=== PATIENT | female | born 1960 | race Caucasian/White ===

== ENCOUNTER 2020-10-21 18:31 | Inpatient (IN) ==
[2020-10-21 21:14] LABS: Basophils # (auto) 0.02 K/uL (0-0.2); Basophils % (auto) 0.1 %; Eosinophils # (auto) 0.02 K/uL (0-0.5); Eosinophils % (auto) 0.1 %; Hematocrit (blood only) 37.3 % (37-47); Hemoglobin 11.9 g/dL (12.0-16.0); Immature Granulocytes # (auto) 0.02 K/uL (0.00-0.02); Immature Granulocytes % (auto) 0.1 %; Lymphocytes # (auto) 2.23 K/uL (1.2-3.4); Lymphocytes % (auto) 16.7 %; Mean Corpuscular Hemoglobin 29.8 pg (25-34); Mean Corpuscular Hgb Conc 31.9 g/dL (32-36); Mean Corpuscular Volume 93.3 fL (80-100); Monocytes # (auto) 0.83 K/uL (0.11-0.59); Monocytes % (auto) 6.2 %; Neutrophils # (auto) 10.27 K/uL (1.4-6.5); Neutrophils % (auto) 76.8 %; Platelet Count 439 K/uL (130-400); RDW Coefficient of Variation 15.4 % (11.5-14.5); RDW Standard Deviation 52.2 fL (36.4-46.3); White Blood Count 13.39 K/uL (4.8-10.8)
[2020-10-21 21:27] LABS: INR 1.1 (0.9-1.1); Prothrombin Time 10.7 Seconds (9.0-12.0)
[2020-10-21 21:50] LABS: Alanine Aminotransferase 116 U/L (12-78); Albumin Level 3.3 gm/dl (3.4-5.0); Aspartate Aminotransferase 69 U/L (15-37); BUN Creatinine Ratio 13.3 (10-20); Blood Urea Nitrogen 13 mg/dl (7-18); Carbon Dioxide 25 mmol/L (21-32); Chloride 104 mmol/L (98-107); Creatinine Clr Calc Pharmacy 73.2 ml/min; Est GFR (African American) 73.7 ml/min; Est GFR (Non-African American) 63.6 ml/min; Glucose 106 mg/dl (70-99); Magnesium 1.8 mg/dl (1.8-2.4); Potassium 3.7 mmol/L (3.5-5.1); Sodium 138 mmol/L (136-145)
[2020-10-21 21:54] LABS: Albumin Globulin Ratio 0.8 (0.9-2); Alkaline Phosphatase 474 U/L (45-117); Bilirubin,Total 2.1 mg/dl (0.2-1); Globulin 4.2 gm/dl (2.5-4.0); Total Protein 7.5 gm/dl (6.4-8.2); Troponin I < 0.015 ng/ml (0-0.045)
[2020-10-21] MEDS ORDERED: AMPICILLIN/SULBACTAM SOD 3,000 MG in 0.9 % SODIUM CHLORIDE 100 ML IV STA (22:02)
--- NOTE | 2020-10-21 22:12 | Emergency Department Note ---
Impression & Plan Left leg pain, Fever, Wound infection after surgery, Leukocytosis ED Provider Note NAME: LUPE IBRAHIM AGE: 60 SEX: F : 1960 ARRIVES VIA: Walk-In INFORMANT: [Patient][family] ED PROVIDER(S): [Bill Bolivar MD] CHIEF COMPLAINT: Fever HISTORY OF PRESENT ILLNESS: The patient is a 60-year-old female who presents to the ER with a temperature of 101.5. She took some Tylenol and this brought the temperature down. Since noon today, for several hours, she has had chills and fevers and then finally spiked a temperature just before coming to the ED. The patient had 5 bypasses performed at [facility] in [place]. This was about 3 weeks ago. The patient states that she was told to report to the ED because of the fever. There has been no shortness of breath or cough. No stuffy nose or sore throat. No vomiting or diarrhea or urinary complaints. She has not had any tick bites. She is not vaccinated against COVID-19 but has had no sick contacts. She states that she does have some healing surgical wounds to her left leg where they took some veins for her surgery. Her left leg is somewhat swollen but this has been the case since the surgery. REVIEW OF SYSTEMS: See HPI for pertinent positives and negatives. A total of ten systems were reviewed and were otherwise negative. PMHx/PSHx: See Below SOCIAL HISTORY: See Below. PHYSICAL EXAM: GENERAL: Patient is in no acute distress. HEENT: No acute trauma, normocephalic atraumatic, mucous membranes moist, no nasal congestion, no scleral icterus. NECK: No stridor, no adenopathy, no meningismus, trachea is midline. LUNGS: Clear to auscultation bilaterally, no wheeze, no rhonchi, breath sounds equal. HEART: Without murmurs gallops or rubs, regular rate and rhythm. Chest: The midline surgical incision is healing well, no surrounding erythema or drainage. ABDOMEN: Soft, nontender, bowel sounds positive, no hernias, no peritonitis. EXTREMITIES: No cyanosis. There is some left lower extremity edema. There is a healing lesion/scab to the left medial tib-fib area with some subtle surrounding erythema. No tenderness, no real warmth. Patient has a 6 or 7 cm area of fullness to the left distal medial thigh. This is tender. There is some surrounding warmth and erythema. No drainage. There is a scab in the center of the erythema. NEUROLOGIC: Oriented x 3, no acute motor or sensory deficits, no focal weakness. SKIN: No jaundice, no diaphoresis. DIFFERENTIAL DIAGNOSIS: Sepsis, UTI, pneumonia, metabolic abnormality, electrolyte abnormalities, abscess, COVID-19, cardiac sources, cellulitis, UTI, bacteremia, intracerebral event, toxicologic etiology, neurologic event, as well as other pathologies. EMERGENCY DEPARTMENT COURSE/PROCEDURES: ECG: Indication was possible sepsis. The ECG shows a normal sinus rhythm with a rate of 96. There are inverted T waves in the inferior, lateral leads. No ST elevation, no PVCs. The QTc is 442. No old EKGs available for comparison. Continuous Cardiac Monitoring: An order was placed for continuous cardiac monitoring. The monitor shows a rate of 81 with normal sinus rhythm. MEDICAL DECISION MAKING: There is a moderate leukocytosis which would be consistent with infection. No concerning anemia. Platelet count mildly elevated. No coagulopathy. No significant electrolyte abnormality or kidney failure. Lactic acid level is not elevated making severe sepsis less likely. There were a few liver enzyme elevations noted. ECG shows a sinus rhythm, no acute ischemia. Cardiac enzyme testing x1 is not consistent with acute cardiac injury. Urinalysis shows some contamination, no infection. Covid testing returned negative. Lyme disease testing returned negative. Left leg ultrasound did not show any evidence for DVT. Left leg nonvascular ultrasound did show a large presumed hematoma. The patient was given IV Unasyn and IV daptomycin. She is currently resting comfortably. I did speak with the patient's cardiothoracic surgeon in [place]. He felt the patient could be cared for at our hospital. The hematoma needs drained. The hematoma is likely infected. There was no reason for transfer to their facility. I spoke to orthopedics who did not feel they were the best specialists for the drainage procedure. I then spoke with general surgery who did agree to see the patient for potential surgical intervention. I spoke with the patient and case packer. The on-call hospitalist was consulted. Patient will be seen by surgery in the a.m. Past Med/Surg History Medical History CAD (coronary atherosclerotic disease) Surgical History S/P CABG x 5 Social History Smoking Status: Never smoker Feels Safe at Home: Yes Results & Data (ED) Vital Signs Vital Signs - 24 hr 10/21/20 18:38 10/21/20 21:19 10/21/20 23:04 Temperature 37.2 C Temperature Source Oral Pulse Rate 104 H Pulse Rate [Apical] 81 79 Pulse Rhythm [Apical] Regular Pulse Strength [Apical] Normal Respiratory Rate 18 20 16 Respiratory Effort / Characteristics Non-Labored Non-Labored Spontaneous Non-Labored Spontaneous Respiratory Depth Normal Normal Normal Blood Pressure 120/75 Blood Pressure [Right Arm] 126/91 153/104 H Blood Pressure Mean 90 Blood Pressure Mean [Right Arm] 102 120 Blood Pressure Position [Right Arm] Sitting Pulse Oximetry 96 97 96 Oxygen Delivery Method Room Air Room Air Room Air Sepsis Recent Fever Within 48 Hours No Sepsis New/Unexplained Change in Mental Status No Sepsis Action Taken by Nursing No Action Required Laboratory Data Attestation: I reviewed the patient's lab results. Result diagrams: 10/21/20 20:50 10/21/20 20:50 Lab Results 10/21/20 10/21/20 10/21/20 Range/Units 20:50 20:50 20:50 WBC 13.39 H (4.8-10.8) K/uL RBC 4.00 L (4.2-5.4) M/uL Hgb 11.9 L (12.0-16.0) g/dL Hct 37.3 (37-47) % MCV 93.3 (80-100) fL MCH 29.8 (25-34) pg MCHC 31.9 L (32-36) g/dL RDW Std Deviation 52.2 H (36.4-46.3) fL RDW Coeff of Kathryn 15.4 H (11.5-14.5) % Plt Count 439 H (130-400) K/uL MPV 9.0 (7.4-10.4) fL Immature Gran % (Auto) 0.1 % Neut % (Auto) 76.8 % Lymph % (Auto) 16.7 % [place] % (Auto) 6.2 % Eos % (Auto) 0.1 % Baso % (Auto) 0.1 % Neut # (Auto) 10.27 H (1.4-6.5) K/uL Lymph # (Auto) 2.23 (1.2-3.4) K/uL [place] # (Auto) 0.83 H (0.11-0.59) K/uL Eos # (Auto) 0.02 (0-0.5) K/uL Baso # (Auto) 0.02 (0-0.2) K/uL Immature Gran # (Auto) 0.02 (0.00-0.02) K/uL PT 10.7 (9.0-12.0) Seconds INR 1.1 (0.9-1.1) APTT 25.0 (21.0-31.0) Seconds PTT Ratio 1.0 Sodium 138 (136-145) mmol/L Potassium 3.7 (3.5-5.1) mmol/L Chloride 104 (98-107) mmol/L Carbon Dioxide 25 (21-32) mmol/L Anion Gap 9.0 (3-11) BUN 13 (7-18) mg/dl Creatinine 0.98 (0.6-1.2) mg/dl Est Cr Clr Drug Dosing 73.2 ml/min Est GFR ( Amer) 73.7 ml/min Est GFR (Non-Af Amer) 63.6 ml/min BUN/Creatinine Ratio 13.3 (10-20) Glucose 106 H (70-99) mg/dl Lactate (0.4-2.0) mmol/L Calcium 9.0 (8.5-10.1) mg/dl Magnesium 1.8 (1.8-2.4) mg/dl Total Bilirubin 2.1 H (0.2-1) mg/dl AST 69 H (15-37) U/L ALT 116 H (12-78) U/L Alkaline Phosphatase 474 H (45-117) U/L Troponin I < 0.015 (0-0.045) ng/ml Total Protein 7.5 (6.4-8.2) gm/dl Albumin 3.3 L (3.4-5.0) gm/dl Globulin 4.2 H (2.5-4.0) gm/dl Albumin/Globulin Ratio 0.8 L (0.9-2) Urine Color Urine Appearance (Clear) Urine pH (4.5-7.5) Ur Specific [place] (1.000-1.030) Urine Protein (Negative) Urine Glucose (UA) (Negative) Urine Ketones (Negative) Urine Blood (Negative) Urine Nitrite (Negative) Urine Bilirubin (Negative) Urine Urobilinogen (Negative) Ur Leukocyte Esterase (Negative) Urine WBC (Auto) (0-5) /hpf Urine RBC (Auto) (0-4) /hpf U Hyaline Cast (Auto) (0-5) /lpf U Epithel Cells (Auto) (0-5) /lpf Urine Bacteria (Auto) (Negative) Lyme Disease IgG Ab (Negative) Lyme Disease IgM Ab (Negative) COVID-19 Eval Order SARS-CoV-2 (PCR) (Negative) 10/21/20 10/21/20 10/21/20 Range/Units 22:08 22:08 22:29 WBC (4.8-10.8) K/uL RBC (4.2-5.4) M/uL Hgb (12.0-16.0) g/dL Hct (37-47) % MCV (80-100) fL MCH (25-34) pg MCHC (32-36) g/dL RDW Std Deviation (36.4-46.3) fL RDW Coeff of Kathryn (11.5-14.5) % Plt Count (130-400) K/uL MPV (7.4-10.4) fL Immature Gran % (Auto) % Neut % (Auto) % Lymph % (Auto) % [place] % (Auto) % Eos % (Auto) % Baso % (Auto) % Neut # (Auto) (1.4-6.5) K/uL Lymph # (Auto) (1.2-3.4) K/uL [place] # (Auto) (0.11-0.59) K/uL Eos # (Auto) (0-0.5) K/uL Baso # (Auto) (0-0.2) K/uL Immature Gran # (Auto) (0.00-0.02) K/uL PT (9.0-12.0) Seconds INR (0.9-1.1) APTT (21.0-31.0) Seconds PTT Ratio Sodium (136-145) mmol/L Potassium (3.5-5.1) mmol/L Chloride (98-107) mmol/L Carbon Dioxide (21-32) mmol/L Anion Gap (3-11) BUN (7-18) mg/dl Creatinine (0.6-1.2) mg/dl Est Cr Clr Drug Dosing ml/min Est GFR ( Amer) ml/min Est GFR (Non-Af Amer) ml/min BUN/Creatinine Ratio (10-20) Glucose (70-99) mg/dl Lactate 1.1 (0.4-2.0) mmol/L Calcium (8.5-10.1) mg/dl Magnesium (1.8-2.4) mg/dl Total Bilirubin (0.2-1) mg/dl AST (15-37) U/L ALT (12-78) U/L Alkaline Phosphatase (45-117) U/L Troponin I (0-0.045) ng/ml Total Protein (6.4-8.2) gm/dl Albumin (3.4-5.0) gm/dl Globulin (2.5-4.0) gm/dl Albumin/Globulin Ratio (0.9-2) Urine Color Urine Appearance (Clear) Urine pH (4.5-7.5) Ur Specific [place] (1.000-1.030) Urine Protein (Negative) Urine Glucose (UA) (Negative) Urine Ketones (Negative) Urine Blood (Negative) Urine Nitrite (Negative) Urine Bilirubin (Negative) Urine Urobilinogen (Negative) Ur Leukocyte Esterase (Negative) Urine WBC (Auto) (0-5) /hpf Urine RBC (Auto) (0-4) /hpf U Hyaline Cast (Auto) (0-5) /lpf U Epithel Cells (Auto) (0-5) /lpf Urine Bacteria (Auto) (Negative) Lyme Disease IgG Ab (Negative) Lyme Disease IgM Ab (Negative) COVID-19 Eval Order Covid19 at [facility] SARS-CoV-2 (PCR) NEGATIVE (Negative) 10/21/20 10/21/20 Range/Units 22:29 23:34 WBC (4.8-10.8) K/uL RBC (4.2-5.4) M/uL Hgb (12.0-16.0) g/dL Hct (37-47) % MCV (80-100) fL MCH (25-34) pg MCHC (32-36) g/dL RDW Std Deviation (36.4-46.3) fL RDW Coeff of Kathryn (11.5-14.5) % Plt Count (130-400) K/uL MPV (7.4-10.4) fL Immature Gran % (Auto) % Neut % (Auto) % Lymph % (Auto) % [place] % (Auto) % Eos % (Auto) % Baso % (Auto) % Neut # (Auto) (1.4-6.5) K/uL Lymph # (Auto) (1.2-3.4) K/uL [place] # (Auto) (0.11-0.59) K/uL Eos # (Auto) (0-0.5) K/uL Baso # (Auto) (0-0.2) K/uL Immature Gran # (Auto) (0.00-0.02) K/uL PT (9.0-12.0) Seconds INR (0.9-1.1) APTT (21.0-31.0) Seconds PTT Ratio Sodium (136-145) mmol/L Potassium (3.5-5.1) mmol/L Chloride (98-107) mmol/L Carbon Dioxide (21-32) mmol/L Anion Gap (3-11) BUN (7-18) mg/dl Creatinine (0.6-1.2) mg/dl Est Cr Clr Drug Dosing ml/min Est GFR ( Amer) ml/min Est GFR (Non-Af Amer) ml/min BUN/Creatinine Ratio (10-20) Glucose (70-99) mg/dl Lactate (0.4-2.0) mmol/L Calcium (8.5-10.1) mg/dl Magnesium (1.8-2.4) mg/dl Total Bilirubin (0.2-1) mg/dl AST (15-37) U/L ALT (12-78) U/L Alkaline Phosphatase (45-117) U/L Troponin I (0-0.045) ng/ml Total Protein (6.4-8.2) gm/dl Albumin (3.4-5.0) gm/dl Globulin (2.5-4.0) gm/dl Albumin/Globulin Ratio (0.9-2) Urine Color Dark Yellow Urine Appearance Cloudy A (Clear) Urine pH 5.5 (4.5-7.5) Ur Specific [place] 1.037 H (1.000-1.030) Urine Protein 1+ H (Negative) Urine Glucose (UA) Negative (Negative) Urine Ketones Trace H (Negative) Urine Blood Negative (Negative) Urine Nitrite Negative (Negative) Urine Bilirubin 1+ H (Negative) Urine Urobilinogen Negative (Negative) Ur Leukocyte Esterase Negative (Negative) Urine WBC (Auto) 5-10 H (0-5) /hpf Urine RBC (Auto) 0-4 (0-4) /hpf U Hyaline Cast (Auto) 10-30 H (0-5) /lpf U Epithel Cells (Auto) >30 H (0-5) /lpf Urine Bacteria (Auto) 1+ H (Negative) Lyme Disease IgG Ab Negative (Negative) Lyme Disease IgM Ab Negative (Negative) COVID-19 Eval Order SARS-CoV-2 (PCR) (Negative) Administered Medications Discontinued Medications Ampicillin Sodium/Sulbactam Sodium 3,000 mg/ Sodium Chloride 108 mls @ 200 mls/hr IV NOW STA; Protocol Stop: 10/21/20 22:34 Last Infusion: 10/21/20 23:03 Dose: 0 mls/hr Documented by: [id number] Admin: 10/21/20 22:15 Dose: 200 mls/hr Documented by: [id number] Imaging Data Radiologist's Impression: Left lower extremity vascular and nonvascular ultrasound: There is no DVT. The patient has a nonspecific complex fluid collection extending from the distal thigh down the calf measuring 33 cm in craniocaudal dimension and 3.1 x 6.5 cm in greatest axial dimension. This could represent a resolving hematoma or seroma or phlegmon/early abscess. Discharge Plan Visit Data Chief Complaint: Fever Stated Complaint: FEVER ED Provider: Bill Bolivar Discharge Problem: Left leg pain, Fever, Wound infection after surgery, Leukocytosis Patient Disposition: Admitted As Inpatient Condition: Fair Forms Stand Alone Forms: [facility] Referrals Referrals: PCP,NO [Physician] -
[2020-10-21 23:29] LABS: Lyme Ab IgG w/WB Rflx Negative (Negative); Lyme Ab IgM w/WB Rflx Negative (Negative)
[2020-10-21 23:44] LABS: Appearance Urine Cloudy (Clear); Bacteria Urine Automated 1+ (Negative); Blood Urine Negative (Negative); Color Urine Dark Yellow; Epithelial Cell Urine Auto >30 /lpf (0-5); Glucose Urine UA Negative (Negative); Ketones Urine Trace (Negative); Leukocyte Esterase Urine Negative (Negative); Nitrite Urine Negative (Negative); Protein Urine 1+ (Negative); Specific Gravity Urine 1.037 (1.000-1.030); Urobilinogen Urine Negative (Negative); pH Urine 5.5 (4.5-7.5)
[2020-10-21 23:52] LABS: Bilirubin Urine 1+ (Negative)
[2020-10-22 00:02] LABS: RBC Urine Automated 0-4 /hpf (0-4)
[2020-10-22] MEDS ORDERED: DAPTOmycin 300 MG in SYRINGE 0 ML IV ONE (00:23)
--- NOTE | 2020-10-22 01:12 | History & Physical Report ---
Date of Service October 22, 2020 Assessment & Plan (1) Left leg pain: Plan: 60-year-old female with history of coronary artery disease status post CABG x5 vessel performed on 09/29/2020 presenting with fever from home as well as redness and swelling of the left leg at site of vein harvest for CABG. Ultrasound revealed large fluid collection, possible abscess. Most likely source of patient's fever, swelling and pain. Case discussed between ER physician and general surgery. Admit to medical We will initiate broad-spectrum antibiotics with vancomycin and Zosyn Follow cultures sent in ER N.p.o. General surgery consultation appreciated for possible drainage (2) CAD (coronary atherosclerotic disease): Plan: Patient status post CABG x5 vessel performed on 09/29/2020 in [place], [place]. Surgery well-tolerated. She has been doing well postoperatively. Specifically denies chest pain, palpitations, syncope, dyspnea. Troponin = negative. EKG with diffuse T wave inversions, possibly secondary to post cardiac catheterization changes. Continue aspirin 81 mg, atorvastatin 80 mg, metoprolol 50 mg twice daily (3) Hypertension: Plan: Blood pressure mildly elevated 157/92 Pain control Continue amlodipine 5 mg p.o. daily Continue metoprolol 50 mg p.o. twice daily Continue to monitor (4) Elevated alkaline phosphatase level: Plan: Patient with abnormal liver studies and mixed pattern, alkaline phosphatase = 474 most likely secondary to recent sternotomy. Also with elevated bilirubin of 2.1, AST = 69, ALT = 116. Abdominal exam benign. Patient denies pain, nausea, vomiting. Right upper quadrant ultrasound obtained and is unremarkable Repeat LFTs in a.m. History of Present Illness Chief Complaint: Fever, left thigh pain Primary Care Provider: Elvis Stephens MD Rosibel Myles is a 60-year-old female with history of hypertension, coronary artery disease, status post CABG x5 vessel performed 09/29/2020 at [facility] in [place], [place] (Dr. Rivers was surgeon). Patient recently moved in with her daughter who lives locally. She presents today with fever as well as swelling/pain of left thigh at site of vein harvest. T-max of one 1.5 prior to arrival. Patient took Tylenol No additional complaints. Specifically denies chest pain, palpitations, cough, shortness of breath. Denies abdominal pain, nausea, vomiting, diarrhea, constipation. She has been taking her medications as instructed without difficulty. ER course: Unasyn, daptomycin Allergies Allergy/AdvReac Type Severity Reaction Status Date / Time No Known Allergies Allergy Unverified 10/22/20 01:07 Home Medications Medication Instructions Recorded Confirmed Type amlodipine 5 mg tablet 5 mg PO DAILY 10/22/20 10/22/20 History aspirin 81 mg PO DAILY 10/22/20 10/22/20 History atorvastatin 80 mg tablet 80 mg PO DAILY 10/22/20 10/22/20 History furosemide 40 mg tablet 40 mg PO DAILY 10/22/20 10/22/20 History metoprolol tartrate 50 mg tablet 50 mg PO BID 10/22/20 10/22/20 History potassium chloride 20 mEq 20 meq PO DAILY 10/22/20 10/22/20 History tablet,extended release(part/cryst) (Annette lAcantara) Past Med/Surg History Medical History (Updated 10/22/20 @ 03:04 by Tracie Lei DO) CAD (coronary atherosclerotic disease) Hypertension Surgical History (Updated 10/22/20 @ 02:58 by Tracie Lei DO) [facility] (Updated 10/22/20 @ 02:58 by Tracie Lei DO) Other Heart disease Hypertension Social History (Updated 10/22/20 @ 02:59 by Tracie Lei DO) Smoking Status: Never smoker Hx Alcohol Use: No Hx Substance Use: No Feels Safe at Home: Yes Review of Systems Review of Systems: All systems reviewed & are unremarkable except as noted in HPI & below Physical Exam Physical Exam: General: patient resting comfortably, NAD, non-toxic in appearance, AA&O x 4 Skin: warm, dry, intact, no rashes or lesions HEENT: NC/AT, PERRL, EOMI, anicteric sclera, conjunctiva without injection, external ear normal to inspection and nontender, nares patent, moist mucus membranes, dentition intact, no oropharyngeal lesions, neck supple, trachea midline, no LAD, no thyromegaly, no JVD Heart: +S1/S2, regular, no m/r/g, well-healing sternotomy incision with no bleeding/erythema/dehiscence Lungs: equal air entry bilaterally, no rales/rhonchi/wheezes Abd: +BS, soft, NT/ND, no masses/organomegaly/ascites, no right upper quadrant pain, negative Gardner sign Ext: warm, 2+ pulses in UE/LE bilaterally, no clubbing/cyanosis, tenderness to palpation left medial thigh to posterior popliteal fossa with warmth and redness Neuro: nonfocal, patient AA&O x 4, speech intact, no facial droop, moving all extremities on command with equal strength 5/5 Results & Data Results & Data ([facility]) Vital Signs (Past 12 Hours) Vital Signs Temp Pulse Pulse Resp BP BP Pulse Ox 10/21/20 23:04 79 16 153/104 H 96 10/21/20 21:19 81 20 126/91 97 10/21/20 18:38 37.2 C 104 H 18 120/75 96 Laboratory Results Laboratory Results WBC 13.39 K/uL (4.8-10.8) H 10/21/20 20:50 RBC 4.00 M/uL (4.2-5.4) L 10/21/20 20:50 Hgb 11.9 g/dL (12.0-16.0) L 10/21/20 20:50 Hct 37.3 % (37-47) 10/21/20 20:50 MCV 93.3 fL (80-100) 10/21/20 20:50 MCH 29.8 pg (25-34) 10/21/20 20:50 MCHC 31.9 g/dL (32-36) L 10/21/20 20:50 RDW Std Deviation 52.2 fL (36.4-46.3) H 10/21/20 20:50 RDW Coeff of Kathryn 15.4 % (11.5-14.5) H 10/21/20 20:50 Plt Count 439 K/uL (130-400) H 10/21/20 20:50 MPV 9.0 fL (7.4-10.4) 10/21/20 20:50 Immature Gran % (Auto) 0.1 % 10/21/20 20:50 Neut % (Auto) 76.8 % 10/21/20 20:50 Lymph % (Auto) 16.7 % 10/21/20 20:50 [place] % (Auto) 6.2 % 10/21/20 20:50 Eos % (Auto) 0.1 % 10/21/20 20:50 Baso % (Auto) 0.1 % 10/21/20 20:50 Neut # (Auto) 10.27 K/uL (1.4-6.5) H 10/21/20 20:50 Lymph # (Auto) 2.23 K/uL (1.2-3.4) 10/21/20 20:50 [place] # (Auto) 0.83 K/uL (0.11-0.59) H 10/21/20 20:50 Eos # (Auto) 0.02 K/uL (0-0.5) 10/21/20 20:50 Baso # (Auto) 0.02 K/uL (0-0.2) 10/21/20 20:50 Immature Gran # (Auto) 0.02 K/uL (0.00-0.02) 10/21/20 20:50 PT 10.7 Seconds (9.0-12.0) 10/21/20 20:50 INR 1.1 (0.9-1.1) 10/21/20 20:50 APTT 25.0 Seconds (21.0-31.0) 10/21/20 20:50 PTT Ratio 1.0 10/21/20 20:50 Sodium 138 mmol/L (136-145) 10/21/20 20:50 Potassium 3.7 mmol/L (3.5-5.1) 10/21/20 20:50 Chloride 104 mmol/L (98-107) 10/21/20 20:50 Carbon Dioxide 25 mmol/L (21-32) 10/21/20 20:50 Anion Gap 9.0 (3-11) 10/21/20 20:50 BUN 13 mg/dl (7-18) 10/21/20 20:50 Creatinine 0.98 mg/dl (0.6-1.2) 10/21/20 20:50 Est Cr Clr Drug Dosing 73.2 ml/min 10/21/20 20:50 Est GFR ( Amer) 73.7 ml/min 10/21/20 20:50 Est GFR (Non-Af Amer) 63.6 ml/min 10/21/20 20:50 BUN/Creatinine Ratio 13.3 (10-20) 10/21/20 20:50 Glucose 106 mg/dl (70-99) H 10/21/20 20:50 Lactate 1.1 mmol/L (0.4-2.0) 10/21/20 22:29 Calcium 9.0 mg/dl (8.5-10.1) 10/21/20 20:50 Magnesium 1.8 mg/dl (1.8-2.4) 10/21/20 20:50 Total Bilirubin 2.1 mg/dl (0.2-1) H 10/21/20 20:50 AST 69 U/L (15-37) H 10/21/20 20:50 ALT 116 U/L (12-78) H 10/21/20 20:50 Alkaline Phosphatase 474 U/L (45-117) H 10/21/20 20:50 Troponin I < 0.015 ng/ml (0-0.045) 10/21/20 20:50 Total Protein 7.5 gm/dl (6.4-8.2) 10/21/20 20:50 Albumin 3.3 gm/dl (3.4-5.0) L 10/21/20 20:50 Globulin 4.2 gm/dl (2.5-4.0) H 10/21/20 20:50 Albumin/Globulin Ratio 0.8 (0.9-2) L 10/21/20 20:50 Urine Color Dark Yellow 10/21/20 23:34 Urine Appearance Cloudy (Clear) A 10/21/20 23:34 Urine pH 5.5 (4.5-7.5) 10/21/20 23:34 Ur Specific [place] 1.037 (1.000-1.030) H 10/21/20 23:34 Urine Protein 1+ (Negative) H 10/21/20 23:34 Urine Glucose (UA) Negative (Negative) 10/21/20 23:34 Urine Ketones Trace (Negative) H 10/21/20 23:34 Urine Blood Negative (Negative) 10/21/20 23:34 Urine Nitrite Negative (Negative) 10/21/20 23:34 Urine Bilirubin 1+ (Negative) H 10/21/20 23:34 Urine Urobilinogen Negative (Negative) 10/21/20 23:34 Ur Leukocyte Esterase Negative (Negative) 10/21/20 23:34 Urine WBC (Auto) 5-10 /hpf (0-5) H 10/21/20 23:34 Urine RBC (Auto) 0-4 /hpf (0-4) 10/21/20 23:34 U Hyaline Cast (Auto) 10-30 /lpf (0-5) H 10/21/20 23:34 U Epithel Cells (Auto) >30 /lpf (0-5) H 10/21/20 23:34 Urine Bacteria (Auto) 1+ (Negative) H 10/21/20 23:34 Lyme Disease IgG Ab Negative (Negative) 10/21/20 22:29 Lyme Disease IgM Ab Negative (Negative) 10/21/20 22:29 COVID-19 Eval Order Covid19 at [facility] 10/21/20 22:08 SARS-CoV-2 (PCR) NEGATIVE (Negative) 10/21/20 22:08 Diagnostic Findings Liver ultrasound: Per stat readno cholelithiasis. Sludge is visualized within the lumen of the gallbladder. No gallbladder wall thickening. Negative sonographic Gardner sign. No intrahepatic or extrahepatic biliary dilatation. Hepatomegaly with mildly heterogenous echotexture of the hepatic parenchyma. No focal liver lesion is visualized. No right hydronephrosis. Ultrasound extremity: Per stat readnonspecific complex fluid collection extending from the distal thigh and the calf measuring approximately 33 cm in craniocaudal dimension and 3.1 x 6.5 cm in greatest axial dimension. This could represent a resolving hematoma or seroma with phlegmon/early abscess not excluded. Ultrasound venous left lower extremity: Per stat readno evidence of DVT ECG Additional Comments: EKG with normal sinus rhythm at 96 bpm, PA = 114, QRS = 82, QTC = 442, T wave inversion present diffusely. No previous EKGs available for comparison Code Status & VTE Plan VTE Prophylaxis Plan VTE Prophylaxis will be ordered: Yes PG Care Time/CCT Total # of Minutes Spent Total Time Spent with Patient: Total time spent is greater than 50% in coordination of care (as documented) at patient's floor/unit and/or counseling patient: Coding Level of Care Code 49550 Initial Inpt Care Lvl 3 Diagnoses Hypertension I10 Left leg pain M79.605 CAD (coronary atherosclerotic disease) I25.10 Elevated alkaline phosphatase level R74.8
[2020-10-22] MEDS ORDERED: PIPERACILL/TAZOBAC CONSULT ACTIVE PRN (03:34)
[2020-10-22] MEDS ORDERED: DOCUSATE SODIUM 100 MG CAP PO PRN (03:34)
[2020-10-22] MEDS ORDERED: ONDANSETRON INJ 2 MG/ML 2 ML VIAL IV PRN ×2 (03:34→11:56)
[2020-10-22] MEDS ORDERED: VANCOMYCIN CONSULT ACTIVE PRN (03:34)
[2020-10-22] MEDS ORDERED: ACETAMINOPHEN 325 MG TAB PO PRN (03:34)
[2020-10-22] MEDS ORDERED: PIPERACILLIN/TAZOBACTAM 4.5 GM in DEXTROSE 5% 100 ML IV ONE (04:00)
[2020-10-22] MEDS ORDERED: VANCOMYCIN HCL 2,250 MG in SODIUM CHLORIDE 0.9% 500 ML IV ONE (04:00)
--- NOTE | 2020-10-22 07:13 | Ultrasound Report ---
US liver CLINICAL HISTORY: elevated alkaline phosphatase and bilirubin COMPARISON STUDY: No previous studies for comparison. FINDINGS: This exam is mildly compromised by suboptimal penetration. Liver is mildly echogenic and he terogeneous. The liver is not overtly cirrhotic. No hepatic lesions are identified. There is no bilia ry ductal dilatation. The common bile duct measures 4 mm in caliber. No gallstones are noted. There i s sludge within the gallbladder. There is no sonographic Gardner sign. There is no gallbladder wall th ickening. Pancreatic body is unremarkable. Tail is obscured by overlying bowel gas. There is no right hydronephrosis. IMPRESSION: 1. No gallstones or biliary ductal dilatation. Small amount of sludge within the gallbladder. No evid ence for acute cholecystitis. 2. Possible hepatic steatosis. Liver not overtly cirrhotic. ACT 112: Negative or not required by law. Electronically signed by: Adriano Palma M.D. 10/22/2020 7:11 AM
--- NOTE | 2020-10-22 08:04 | Ultrasound Report ---
LEFT LOWER EXTREMITY VENOUS DOPPLER CLINICAL HISTORY: surgery, swelling COMPARISON STUDY: No previous studies for comparison. TECHNIQUE: Sonography of the deep venous system of the left lower extremity was performed. Compressi on and augmentation were evaluated. FINDINGS: The left common femoral, superficial femoral and popliteal veins were compressible. Augmen tation was normal. Flow was shown within the deep calf vessels. IMPRESSION: No evidence of deep venous thrombus within the left lower extremity. ACT 112: Negative or not required by law. Electronically signed by: Adriano Palma M.D. 10/22/2020 8:03 AM
--- NOTE | 2020-10-22 08:14 | XRay Report ---
XR chest 1V portable CLINICAL HISTORY: Sepsis COMPARISON STUDY: No previous studies for comparison. FINDINGS: Lung volumes are normal. There is no pneumothorax. There is a small left pleural effusion. There is mild left basilar opacity. There is no evidence for pulmonary edema. Cardiomegaly is noted. There are median sternotomy wires and mediastinal surgical clips. IMPRESSION: 1. Small left pleural effusion with left basilar opacity. Radiographic follow-up to ensure resolution is recommended. 2. Cardiomegaly without evidence for pulmonary edema. ACT 112: Negative or not required by law. Electronically signed by: Adriano Palma M.D. 10/22/2020 8:13 AM
--- NOTE | 2020-10-22 08:34 | Ultrasound Report ---
US extremity non-vascular ltd CLINICAL HISTORY: left inner thigh redness, swelling, poss abscess COMPARISON STUDY: None. FINDINGS: Real-time sonographic imaging of the left distal thigh/calf was performed with representati ve images submitted. There is a linear slightly complex fluid collection within the deep subcutaneous soft tissues which measures 33 x 7 x 3 cm. This favors a hematoma or degloving injury. An abscess is considered less likely but could also have a similar appearance. IMPRESSION: A 33 x 7 x 3 cm complex fluid collection within the deep subcutaneous soft tissues of th e left lower extremity. This favors a hematoma or degloving injury. An abscess is considered less lik danis but not entirely excluded. ACT 112: Negative or not required by law. Electronically signed by: Art Swartz M.D. 10/22/2020 8:33 AM
[2020-10-22] MEDS ORDERED: NON-FORMULARY MEDICATION (Aspirin 81 MG) PO SCH (09:00)
--- NOTE | 2020-10-22 09:10 | Surgery Consultation ---
Date of Consultation October 22, 2020 Assessment & Plan (1) Wound infection after surgery: 60 year-old female who is s/p 5 vessel CABG at [facility] on 09/29/2020 who presented to ED with chills and fever with increasing swelling of left medial thigh incision with redness. US showing complex fluid collection of left lower extremity extending 33 cm craniocaudal. Examination with induration, fluctuance, and erythema surrounding left medial thigh vein harvesting incision site. leukocytosis of 13K. Plan: Plan for Incision and drainage in OR under light sedation and local anesthesia by Dr. Montaño. Dr. Montaño discussed procedure and risks, informed consent obtained. Keep NPO continue IV antibiotics DR. Montaño has seen and examined pt, agrees with above History of Present Illness Reason for Consultation: Left thigh abscess Requesting Physician: Bhumika Rodriguez MD Attending Physician: Bhumika Rodriguez MD History of Present Illness Rosibel is a 60 year-old female with history of CAD, HTN, and recent 5 vessel CABG at [facility] in [place], [place] at beginning of this month who presented to emergency department complaining of chills and fever of 101.4 that started yesterday around lunch time. States she has swelling and redness near her left thigh incision site that just started yesterday. Takes Lasix for left lower extremity swelling since 1 week afer her CABG.No drainage from incision site since she has been home. Had some bloody drainage from incision during her hospital stay. Takes 81 mg of aspirin. Allergies Allergy/AdvReac Type Severity Reaction Status Date / Time No Known Allergies Allergy Unverified 10/22/20 01:07 Home Medications Medication Instructions Recorded Confirmed Type amlodipine 5 mg tablet 5 mg PO DAILY 10/22/20 10/22/20 History aspirin 81 mg PO DAILY 10/22/20 10/22/20 History atorvastatin 80 mg tablet 80 mg PO DAILY 10/22/20 10/22/20 History furosemide 40 mg tablet 40 mg PO DAILY 10/22/20 10/22/20 History metoprolol tartrate 50 mg tablet 50 mg PO BID 10/22/20 10/22/20 History potassium chloride 20 mEq 20 meq PO DAILY 10/22/20 10/22/20 History tablet,extended release(part/cryst) (Annette Alcantara) Patient History Medical History (Updated 10/22/20 @ 03:04 by Tracie Lei DO) CAD (coronary atherosclerotic disease) Hypertension Surgical History (Updated 10/22/20 @ 02:58 by Tracie Lei DO) [facility] (Updated 10/22/20 @ 02:58 by Tracie Lei DO) Other Heart disease Hypertension Social History (Updated 10/22/20 @ 02:59 by Tracie Lei DO) Smoking Status: Former smoker Hx Alcohol Use: No Hx Substance Use: No Preferred Language: Bruneian Communication Ability: Effective Mangle Tender Required: No Beliefs That Will Affect Care: None Current Living Situation: Family Other Information That Helps Us Care for You: No Feels Safe at Home: Yes Safety Concerns: Feels Safe At This Time Assistive Devices: None Physical Exam Constitutional: WD/WN, vitals as above + morbidly obese; no acute distress and not ill appearing Respiratory: normal respiratory effort; no respiratory distress, no labored breathing and no retractions Musculoskeletal: Left medial thigh with induration and fluctuance surrounding the medial incision site with surrounding erythema. Tenderness to palpation. There is mild edema of the lower extremity. NO rashes. Right medial calf incision clean/dry/intact. Skin: no rashes, warm and dry Psychiatric: A+Ox3, euthymic affect Results & Data ([facility]) Vital Signs (Past 12 Hours) Vital Signs Temp Pulse Pulse Resp BP Pulse Ox 10/22/20 03:00 37.7 C H 77 80 22 152/88 H 95 10/22/20 01:00 88 16 157/92 H 96 10/21/20 23:04 79 16 153/104 H 96 10/21/20 21:19 81 20 126/91 97 Laboratory Results 10/22/20 10/21/20 10/21/20 Range/Units 05:58 23:34 22:29 WBC (4.8-10.8) K/uL RBC (4.2-5.4) M/uL Hgb (12.0-16.0) g/dL Hct (37-47) % MCV (80-100) fL MCH (25-34) pg MCHC (32-36) g/dL RDW Std Deviation (36.4-46.3) fL RDW Coeff of Kathryn (11.5-14.5) % Plt Count (130-400) K/uL MPV (7.4-10.4) fL Immature Gran % (Auto) % Neut % (Auto) % Lymph % (Auto) % [place] % (Auto) % Eos % (Auto) % Baso % (Auto) % Neut # (Auto) (1.4-6.5) K/uL Lymph # (Auto) (1.2-3.4) K/uL [place] # (Auto) (0.11-0.59) K/uL Eos # (Auto) (0-0.5) K/uL Baso # (Auto) (0-0.2) K/uL Immature Gran # (Auto) (0.00-0.02) K/uL PT (9.0-12.0) Seconds INR (0.9-1.1) APTT (21.0-31.0) Seconds PTT Ratio Sodium (136-145) mmol/L Potassium (3.5-5.1) mmol/L Chloride (98-107) mmol/L Carbon Dioxide (21-32) mmol/L Anion Gap (3-11) BUN (7-18) mg/dl Creatinine (0.6-1.2) mg/dl Est Cr Clr Drug Dosing ml/min Est GFR ( Amer) ml/min Est GFR (Non-Af Amer) ml/min BUN/Creatinine Ratio (10-20) Glucose (70-99) mg/dl Lactate (0.4-2.0) mmol/L Calcium (8.5-10.1) mg/dl Magnesium (1.8-2.4) mg/dl Total Bilirubin (0.2-1) mg/dl AST (15-37) U/L ALT (12-78) U/L Alkaline Phosphatase (45-117) U/L Total Creatine Kinase 93 (26-192) U/L Troponin I (0-0.045) ng/ml Total Protein (6.4-8.2) gm/dl Albumin (3.4-5.0) gm/dl Globulin (2.5-4.0) gm/dl Albumin/Globulin Ratio (0.9-2) Urine Color Dark Yellow Urine Appearance Cloudy A (Clear) Urine pH 5.5 (4.5-7.5) Ur Specific [place] 1.037 H (1.000-1.030) Urine Protein 1+ H (Negative) Urine Glucose (UA) Negative (Negative) Urine Ketones Trace H (Negative) Urine Blood Negative (Negative) Urine Nitrite Negative (Negative) Urine Bilirubin 1+ H (Negative) Urine Urobilinogen Negative (Negative) Ur Leukocyte Esterase Negative (Negative) Urine WBC (Auto) 5-10 H (0-5) /hpf Urine RBC (Auto) 0-4 (0-4) /hpf U Hyaline Cast (Auto) 10-30 H (0-5) /lpf U Epithel Cells (Auto) >30 H (0-5) /lpf Urine Bacteria (Auto) 1+ H (Negative) Lyme Disease IgG Ab Negative (Negative) Lyme Disease IgM Ab Negative (Negative) COVID-19 Eval Order SARS-CoV-2 (PCR) (Negative) 10/21/20 10/21/20 10/21/20 Range/Units 22:29 22:08 22:08 WBC (4.8-10.8) K/uL RBC (4.2-5.4) M/uL Hgb (12.0-16.0) g/dL Hct (37-47) % MCV (80-100) fL MCH (25-34) pg MCHC (32-36) g/dL RDW Std Deviation (36.4-46.3) fL RDW Coeff of Kathryn (11.5-14.5) % Plt Count (130-400) K/uL MPV (7.4-10.4) fL Immature Gran % (Auto) % Neut % (Auto) % Lymph % (Auto) % [place] % (Auto) % Eos % (Auto) % Baso % (Auto) % Neut # (Auto) (1.4-6.5) K/uL Lymph # (Auto) (1.2-3.4) K/uL [place] # (Auto) (0.11-0.59) K/uL Eos # (Auto) (0-0.5) K/uL Baso # (Auto) (0-0.2) K/uL Immature Gran # (Auto) (0.00-0.02) K/uL PT (9.0-12.0) Seconds INR (0.9-1.1) APTT (21.0-31.0) Seconds PTT Ratio Sodium (136-145) mmol/L Potassium (3.5-5.1) mmol/L Chloride (98-107) mmol/L Carbon Dioxide (21-32) mmol/L Anion Gap (3-11) BUN (7-18) mg/dl Creatinine (0.6-1.2) mg/dl Est Cr Clr Drug Dosing ml/min Est GFR ( Amer) ml/min Est GFR (Non-Af Amer) ml/min BUN/Creatinine Ratio (10-20) Glucose (70-99) mg/dl Lactate 1.1 (0.4-2.0) mmol/L Calcium (8.5-10.1) mg/dl Magnesium (1.8-2.4) mg/dl Total Bilirubin (0.2-1) mg/dl AST (15-37) U/L ALT (12-78) U/L Alkaline Phosphatase (45-117) U/L Total Creatine Kinase (26-192) U/L Troponin I (0-0.045) ng/ml Total Protein (6.4-8.2) gm/dl Albumin (3.4-5.0) gm/dl Globulin (2.5-4.0) gm/dl Albumin/Globulin Ratio (0.9-2) Urine Color Urine Appearance (Clear) Urine pH (4.5-7.5) Ur Specific [place] (1.000-1.030) Urine Protein (Negative) Urine Glucose (UA) (Negative) Urine Ketones (Negative) Urine Blood (Negative) Urine Nitrite (Negative) Urine Bilirubin (Negative) Urine Urobilinogen (Negative) Ur Leukocyte Esterase (Negative) Urine WBC (Auto) (0-5) /hpf Urine RBC (Auto) (0-4) /hpf U Hyaline Cast (Auto) (0-5) /lpf U Epithel Cells (Auto) (0-5) /lpf Urine Bacteria (Auto) (Negative) Lyme Disease IgG Ab (Negative) Lyme Disease IgM Ab (Negative) COVID-19 Eval Order Covid19 at [facility] SARS-CoV-2 (PCR) NEGATIVE (Negative) 10/21/20 10/21/20 10/21/20 Range/Units 20:50 20:50 20:50 WBC 13.39 H (4.8-10.8) K/uL RBC 4.00 L (4.2-5.4) M/uL Hgb 11.9 L (12.0-16.0) g/dL Hct 37.3 (37-47) % MCV 93.3 (80-100) fL MCH 29.8 (25-34) pg MCHC 31.9 L (32-36) g/dL RDW Std Deviation 52.2 H (36.4-46.3) fL RDW Coeff of Kathryn 15.4 H (11.5-14.5) % Plt Count 439 H (130-400) K/uL MPV 9.0 (7.4-10.4) fL Immature Gran % (Auto) 0.1 % Neut % (Auto) 76.8 % Lymph % (Auto) 16.7 % Tripp % (Auto) 6.2 % Eos % (Auto) 0.1 % Baso % (Auto) 0.1 % Neut # (Auto) 10.27 H (1.4-6.5) K/uL Lymph # (Auto) 2.23 (1.2-3.4) K/uL [place] # (Auto) 0.83 H (0.11-0.59) K/uL Eos # (Auto) 0.02 (0-0.5) K/uL Baso # (Auto) 0.02 (0-0.2) K/uL Immature Gran # (Auto) 0.02 (0.00-0.02) K/uL PT 10.7 (9.0-12.0) Seconds INR 1.1 (0.9-1.1) APTT 25.0 (21.0-31.0) Seconds PTT Ratio 1.0 Sodium 138 (136-145) mmol/L Potassium 3.7 (3.5-5.1) mmol/L Chloride 104 (98-107) mmol/L Carbon Dioxide 25 (21-32) mmol/L Anion Gap 9.0 (3-11) BUN 13 (7-18) mg/dl Creatinine 0.98 (0.6-1.2) mg/dl Est Cr Clr Drug Dosing 73.2 ml/min Est GFR ( Amer) 73.7 ml/min Est GFR (Non-Af Amer) 63.6 ml/min BUN/Creatinine Ratio 13.3 (10-20) Glucose 106 H (70-99) mg/dl Lactate (0.4-2.0) mmol/L Calcium 9.0 (8.5-10.1) mg/dl Magnesium 1.8 (1.8-2.4) mg/dl Total Bilirubin 2.1 H (0.2-1) mg/dl AST 69 H (15-37) U/L ALT 116 H (12-78) U/L Alkaline Phosphatase 474 H (45-117) U/L Total Creatine Kinase (26-192) U/L Troponin I < 0.015 (0-0.045) ng/ml Total Protein 7.5 (6.4-8.2) gm/dl Albumin 3.3 L (3.4-5.0) gm/dl Globulin 4.2 H (2.5-4.0) gm/dl Albumin/Globulin Ratio 0.8 L (0.9-2) Urine Color Urine Appearance (Clear) Urine pH (4.5-7.5) Ur Specific [place] (1.000-1.030) Urine Protein (Negative) Urine Glucose (UA) (Negative) Urine Ketones (Negative) Urine Blood (Negative) Urine Nitrite (Negative) Urine Bilirubin (Negative) Urine Urobilinogen (Negative) Ur Leukocyte Esterase (Negative) Urine WBC (Auto) (0-5) /hpf Urine RBC (Auto) (0-4) /hpf U Hyaline Cast (Auto) (0-5) /lpf U Epithel Cells (Auto) (0-5) /lpf Urine Bacteria (Auto) (Negative) Lyme Disease IgG Ab (Negative) Lyme Disease IgM Ab (Negative) COVID-19 Eval Order SARS-CoV-2 (PCR) (Negative) Diagnostic Findings US extremity non-vascular ltd CLINICAL HISTORY: left inner thigh redness, swelling, poss abscess COMPARISON STUDY: None. FINDINGS: Real-time sonographic imaging of the left distal thigh/calf was performed with client service representative images submitted. There is a linear slightly complex fluid collection within the deep subcutaneous soft tissues which measures 33 x 7 x 3 cm. This favors a hematoma or degloving injury. An abscess is considered less likely but could also have a similar appearance. IMPRESSION: A 33 x 7 x 3 cm complex fluid collection within the deep subcutaneous soft tissues of the left lower extremity. This favors a hematoma or degloving injury. An abscess is considered less likely but not entirely excluded.
[2020-10-22] MEDS: ATORVASTATIN 40 MG TAB PO SCH (09:54)
[2020-10-22] MEDS: FUROSEMIDE 40 MG TAB PO SCH (09:55)
[2020-10-22] MEDS: POTASSIUM CHLORIDE CRTAB 20 MEQ TABCR PO SCH (09:55)
[2020-10-22] MEDS: ASPIRIN 81 MG ECTAB PO SCH (09:55)
[2020-10-22] MEDS: METOPROLOL TARTRATE 50 MG TAB PO SCH ×2 (09:55→22:05)
[2020-10-22] MEDS: amLODIPine BESYLATE 5 MG TAB PO SCH (09:55)
[2020-10-22] MEDS ORDERED: PIPERACILLIN/TAZOBACTAM 4.5 GM in DEXTROSE 5% 100 ML IV SCH (10:00)
--- NOTE | 2020-10-22 10:28 | Medical Student Progress Note ---
Date of Service October 22, 2020 Assessment & Plan (1) Wound infection after surgery: Plan: 60 y/o female with history of CAD s/p CABG x5 vessel preformed - presents w/ LLE surgical site infection -Pt w/ infection of RLE at site where vein graft was harvested for CABG -Pt w/ mild leukocytosis but w/o fever or tachycardia -Vanc/zosyn discontinued, started on linezolid -Cultures pending -General performed I&D on 10/22 (2) Elevated alkaline phosphatase level: Plan: -Pt w/ elevated Alkaline phosphatase -Liver u/s unremarkable -Suspected elevated alkaline phosphatase due to recent sternotomy -No tx indicated (3) Hypertension: Plan: -HTN, CAD -Continue home meds Admission and Anticipated Discharge Date Admission Date: October 22, 2020 Subjective 60 y/o female s/p CABG x5 09/29/2020 presented to the ED for a fever and left leg pain. U/S showed complex fluid collection of left lower extremity extending 33 cm craniocaudal. Pt says that the swollen area on her left leg is painful to the touch. Otherwise, she states that she feels fine. Review of Systems Review of Systems: All systems reviewed & are unremarkable except as noted in Subjective Physical Exam Constitutional: Well developed female in no aparant distress sitting comfortably upright in bed Respiratory: normal respiratory effort, lungs clear to auscultation Cardiovascular: Regular rate and rhythm, no murmurs, rubs, or gallops Skin: Well healing anterior sternum surgical incision. No hyperthermia no erythema Left medial distal thigh, well demarcated 3-5cm swollen, erythematous, firm, tender hyperthermic area surrounding 1-2 cm incision with no signs of purulent discharge Results & Data ([facility]) Vital Signs (Past 12 Hours) Vital Signs Temp Pulse Pulse Resp BP Pulse Ox 10/22/20 03:00 37.7 C H 77 80 22 152/88 H 95 10/22/20 01:00 88 16 157/92 H 96 10/21/20 23:04 79 16 153/104 H 96 Laboratory Results Laboratory Results - last 24 hr 10/21/20 10/21/20 10/21/20 20:50 20:50 20:50 WBC 13.39 H RBC 4.00 L Hgb 11.9 L Hct 37.3 MCV 93.3 MCH 29.8 MCHC 31.9 L RDW Std Deviation 52.2 H RDW Coeff of Kathryn 15.4 H Plt Count 439 H MPV 9.0 Immature Gran % (Auto) 0.1 Neut % (Auto) 76.8 Lymph % (Auto) 16.7 [place] % (Auto) 6.2 Eos % (Auto) 0.1 Baso % (Auto) 0.1 Neut # (Auto) 10.27 H Lymph # (Auto) 2.23 [place] # (Auto) 0.83 H Eos # (Auto) 0.02 Baso # (Auto) 0.02 Immature Gran # (Auto) 0.02 PT 10.7 INR 1.1 APTT 25.0 PTT Ratio 1.0 Sodium 138 Potassium 3.7 Chloride 104 Carbon Dioxide 25 Anion Gap 9.0 BUN 13 Creatinine 0.98 Est Cr Clr Drug Dosing 73.2 Est GFR ( Amer) 73.7 Est GFR (Non-Af Amer) 63.6 BUN/Creatinine Ratio 13.3 Glucose 106 H Lactate Calcium 9.0 Magnesium 1.8 Total Bilirubin 2.1 H AST 69 H ALT 116 H Alkaline Phosphatase 474 H Total Creatine Kinase Troponin I < 0.015 Total Protein 7.5 Albumin 3.3 L Globulin 4.2 H Albumin/Globulin Ratio 0.8 L Urine Color Urine Appearance Urine pH Ur Specific [place] Urine Protein Urine Glucose (UA) Urine Ketones Urine Blood Urine Nitrite Urine Bilirubin Urine Urobilinogen Ur Leukocyte Esterase Urine WBC (Auto) Urine RBC (Auto) U Hyaline Cast (Auto) U Epithel Cells (Auto) Urine Bacteria (Auto) Lyme Disease IgG Ab Lyme Disease IgM Ab COVID-19 Eval Order SARS-CoV-2 (PCR) 10/21/20 10/21/20 10/21/20 22:08 22:08 22:29 WBC RBC Hgb Hct MCV MCH MCHC RDW Std Deviation RDW Coeff of Kathryn Plt Count MPV Immature Gran % (Auto) Neut % (Auto) Lymph % (Auto) [place] % (Auto) Eos % (Auto) Baso % (Auto) Neut # (Auto) Lymph # (Auto) [place] # (Auto) Eos # (Auto) Baso # (Auto) Immature Gran # (Auto) PT INR APTT PTT Ratio Sodium Potassium Chloride Carbon Dioxide Anion Gap BUN Creatinine Est Cr Clr Drug Dosing Est GFR ( Amer) Est GFR (Non-Af Amer) BUN/Creatinine Ratio Glucose Lactate 1.1 Calcium Magnesium Total Bilirubin AST ALT Alkaline Phosphatase Total Creatine Kinase Troponin I Total Protein Albumin Globulin Albumin/Globulin Ratio Urine Color Urine Appearance Urine pH Ur Specific [place] Urine Protein Urine Glucose (UA) Urine Ketones Urine Blood Urine Nitrite Urine Bilirubin Urine Urobilinogen Ur Leukocyte Esterase Urine WBC (Auto) Urine RBC (Auto) U Hyaline Cast (Auto) U Epithel Cells (Auto) Urine Bacteria (Auto) Lyme Disease IgG Ab Lyme Disease IgM Ab COVID-19 Eval Order Covid19 at [facility] SARS-CoV-2 (PCR) NEGATIVE 10/21/20 10/21/20 10/22/20 22:29 23:34 05:58 WBC RBC Hgb Hct MCV MCH MCHC RDW Std Deviation RDW Coeff of Kathryn Plt Count MPV Immature Gran % (Auto) Neut % (Auto) Lymph % (Auto) [place] % (Auto) Eos % (Auto) Baso % (Auto) Neut # (Auto) Lymph # (Auto) [place] # (Auto) Eos # (Auto) Baso # (Auto) Immature Gran # (Auto) PT INR APTT PTT Ratio Sodium Potassium Chloride Carbon Dioxide Anion Gap BUN Creatinine Est Cr Clr Drug Dosing Est GFR ( Amer) Est GFR (Non-Af Amer) BUN/Creatinine Ratio Glucose Lactate Calcium Magnesium Total Bilirubin AST ALT Alkaline Phosphatase Total Creatine Kinase 93 Troponin I Total Protein Albumin Globulin Albumin/Globulin Ratio Urine Color Dark Yellow Urine Appearance Cloudy A Urine pH 5.5 Ur Specific [place] 1.037 H Urine Protein 1+ H Urine Glucose (UA) Negative Urine Ketones Trace H Urine Blood Negative Urine Nitrite Negative Urine Bilirubin 1+ H Urine Urobilinogen Negative Ur Leukocyte Esterase Negative Urine WBC (Auto) 5-10 H Urine RBC (Auto) 0-4 U Hyaline Cast (Auto) 10-30 H U Epithel Cells (Auto) >30 H Urine Bacteria (Auto) 1+ H Lyme Disease IgG Ab Negative Lyme Disease IgM Ab Negative COVID-19 Eval Order SARS-CoV-2 (PCR)
[2020-10-22] MEDS ORDERED: LINEZOLID CONSULT ACTIVE PRN (10:30)
[2020-10-22 10:44] LABS: Creatinine Clr Calc Pharmacy 83.4 ml/min; Est GFR (African American) 86.3 ml/min; Est GFR (Non-African American) 74.5 ml/min
[2020-10-22] MEDS ORDERED: fentaNYL citrate 100 MCG/2 ML VIAL ONE (11:13)
[2020-10-22] MEDS ORDERED: PROPOFOL IV EMULSION 10 MG/ML 20 ML VIAL IV ONE ×2 (11:13→12:23)
[2020-10-22] MEDS ORDERED: LACTATED RINGER'S 1,000 ML IV SCH (11:30)
--- NOTE | 2020-10-22 11:30 | Hospitalist Progress Note ---
Date of Service October 22, 2020 Assessment & Plan (1) Wound infection after surgery: Plan: 60-year-old female with history of coronary artery disease status post CABG x5 vessel performed on 09/29/2020 presenting with fever from home as well as redness and swelling of the left leg at site of vein harvest for CABG. Ultrasound revealed large fluid collection, possible abscess. Most likely source of patient's fever, swelling and pain. Surgical site infection Patient with infection of RLE at site where vein graft was harvested for CABG patient underwent on 09/29 in [place] Vanc/zosyn discontinued; started zyvox Cultures pending I&D performed by surgery on 10/22, procedure tolerated well CAD s/p CABG x5 Denies symptoms of ACS; troponin negative EKG with diffuse T-wave inversions, suspect post-catheterization changes Continue ASA, atorvastatin, metoprolol Hypertension Mildly elevated at this time (~150/80) Continue amlodipine, metoprolol Elevated alkaline phosphatase level Patient with abnormal liver studies and mixed pattern, alkaline phosphatase = 474 Suspected to be secondary to recent sternotomy RUQ ultrasound unremarkable Follow daily CMP FEN: , LR@80mL/hr - d/c after one bag. Code status: DNR/DNI DVT ppx: SCDs Consults: general surgery Dispo: med/surg Admission and Anticipated Discharge Date Admission Date: October 22, 2020 Supervising Physician Co-Signing Physician Notes Resident Physician Supervision Note: I independently interviewed and examined the patient and verified the aranda history and physical, reviewed labs and image studies and agree with resident Dr. Griffith findings and care plan. Subjective Patient seen and evaluated at bedside this morning. Feels well and has no complaints. LLE infection is tender to palpation but painless at rest. No other symptoms. Patient denies CP, SOB, abdominal pain, nausea, vomiting, lightheadedness, dizziness, and diarrhea. Review of Systems Review of Systems: See HPI Physical Exam Physical Exam: Constitutional: well-appearing, no acute distress CV: regular rhythm, no murmur appreciated, extremities well-perfused, no LE edema Resp: CTABL, no wheezes/rales/rhonchi appreciated, no increased work of breathing Skin: left thigh with roughly 10-15cm x 10-15cm firm area of swelling, hyperthermia, and underlying induration with central scar, no blood/pus/exudate appreciated, mildly tender to palpation Neuro: AOx4, no focal neurological deficits appreciated Results & Data Results & Data ([facility]) Vital Signs (Past 12 Hours) Vital Signs Temp Pulse Pulse Resp BP Pulse Ox 10/22/20 03:00 37.7 C H 77 80 22 152/88 H 95 10/22/20 01:00 88 16 157/92 H 96 Resident Activity Tracking Resident Involvement: Resident Care Provided Care Provided: Adult Hospital Medicine
[2020-10-22] MEDS ORDERED: BUPIVACAINE 0.5 % 5 MG/1 ML MPF 30ML VIAL ONE (11:42)
[2020-10-22] MEDS ORDERED: LIDOCAINE 1% LOCAL 20 ML VIAL ONE (11:42)
--- NOTE | 2020-10-22 11:51 | History & Physical Bridge Note ---
Date of Service October 22, 2020 History & Physical Bridge Note I have examined the patient, reviewed the History & Physical and in the interval since the performance of the History & Physical I have noted the following changes of clinical significance: no changes noted
--- NOTE | 2020-10-22 11:55 | Anesthesiology Consultation ---
Date of Service October 22, 2020 Assessment & Plan (1) Encounter for pre-operative examination: Chart Review Chart Review: Acceptable Risk for Surgery and Patient NOT seen in Pre Admission Testing Consults Requested none History Surgery Operation Date: 10/22/20 11:30 Proposed Procedures p Incision and Drainage Left Thigh Abscess - Ana María Montaño MD Height/Weight Height: 5 ft 3 in Weight: 106.7 kg Allergies Allergy/AdvReac Type Severity Reaction Status Date / Time No Known Allergies Allergy Unverified 10/22/20 01:07 Medications Home Medications Medication Instructions Recorded Confirmed Last Taken amlodipine 5 mg tablet 5 mg PO DAILY 10/22/20 10/22/20 10/21/20 aspirin 81 mg PO DAILY 10/22/20 10/22/20 10/21/20 atorvastatin 80 mg tablet 80 mg PO DAILY 10/22/20 10/22/20 10/21/20 furosemide 40 mg tablet 40 mg PO DAILY 10/22/20 10/22/20 10/21/20 metoprolol tartrate 50 mg tablet 50 mg PO BID 10/22/20 10/22/20 10/21/20 potassium chloride 20 mEq 20 meq PO DAILY 10/22/20 10/22/20 10/21/20 tablet,extended release(part/cryst) (Klor-Con M) Active Medications Generic Name Dose Route Start Last Admin Trade Name John Paul PRN Reason Stop Dose Admin Amlodipine Besylate 5 mg 10/22/20 09:00 10/22/20 09:55 Amlodipine Besylate 5 Mg Tab PO 11/21/20 08:59 5 mg DAILY MOISES Administration Aspirin 81 mg 10/22/20 09:00 10/22/20 09:55 Aspirin 81 Mg Ectab PO 11/21/20 08:59 81 mg DAILY MOISES Administration Atorvastatin Calcium 80 mg 10/22/20 09:00 10/22/20 09:54 Atorvastatin 40 Mg Tab PO 11/21/20 08:59 80 mg DAILY MOISES Administration Furosemide 40 mg 10/22/20 09:00 10/22/20 09:55 Furosemide 40 Mg Tab PO 11/21/20 08:59 40 mg DAILY MOISES Administration Metoprolol Tartrate 50 mg 10/22/20 09:00 10/22/20 09:55 Metoprolol Tartrate 50 Mg Tab PO 11/21/20 08:59 50 mg BID MOISES Administration Potassium Chloride 20 meq 10/22/20 09:00 10/22/20 09:55 Potassium Chloride Crtab 20 Meq Tabcr PO 11/21/20 08:59 20 meq DAILY MOISES Administration Past Medical History Medical History (Updated 10/22/20 @ 11:55 by Chaz Blancas MD) CAD (coronary atherosclerotic disease) Hypertension Morbid obesity with BMI of 40.0-44.9, adult Past Family History Family History Other Heart disease Hypertension Past [facility] History [facility] Smoking Status: Former smoker Hx Alcohol Use: No Hx Substance Use: No Physical Exam Vital Signs Last Vital Signs Temp 36.7 C 10/22/20 12:08 Pulse 68 10/22/20 12:08 Resp 18 10/22/20 12:08 BP 159/87 H 10/22/20 12:08 Pulse Ox 95 10/22/20 12:08 Testing Laboratory Results 10/21/20 20:50 10/22/20 05:58 PT 10.7 Seconds (9.0-12.0) 10/21/20 20:50 INR 1.1 (0.9-1.1) 10/21/20 20:50 APTT 25.0 Seconds (21.0-31.0) 10/21/20 20:50 Urine Color Dark Yellow 10/21/20 23:34 Urine Appearance Cloudy (Clear) A 10/21/20 23:34 Urine pH 5.5 (4.5-7.5) 10/21/20 23:34 Ur Specific [place] 1.037 (1.000-1.030) H 10/21/20 23:34 Urine Protein 1+ (Negative) H 10/21/20 23:34 Urine Glucose (UA) Negative (Negative) 10/21/20 23:34 Urine Ketones Trace (Negative) H 10/21/20 23:34 Urine Nitrite Negative (Negative) 10/21/20 23:34 Ur Leukocyte Esterase Negative (Negative) 10/21/20 23:34 Urine WBC (Auto) 5-10 /hpf (0-5) H 10/21/20 23:34 Urine RBC (Auto) 0-4 /hpf (0-4) 10/21/20 23:34 U Hyaline Cast (Auto) 10-30 /lpf (0-5) H 10/21/20 23:34 U Epithel Cells (Auto) >30 /lpf (0-5) H 10/21/20 23:34 Urine Bacteria (Auto) 1+ (Negative) H 10/21/20 23:34 Electrocardiogram Date: 10/21/20 Normal sinus rhythm T wave abnormality, consider inferolateral ischemia Abnormal ECG No previous ECGs available
[2020-10-22] MEDS ORDERED: ATROPINE SULFATE 0.1 MG/ML 10ML SYR IV PRN (11:56)
[2020-10-22] MEDS ORDERED: HYDROmorphone INJ 0.5 MG/0.5 ML SYR IV PRN (11:56)
[2020-10-22] MEDS ORDERED: fentaNYL citrate 100 MCG/2 ML VIAL IV PRN (11:56)
[2020-10-22] MEDS ORDERED: PNEUMOCOCCAL POLYSACCHARIDES 25 MCG/0.5 ML VIAL/SYR IM ONE (12:00)
[2020-10-22] MEDS ORDERED: LIDOCAINE 2% 2 ML VIAL/AMP(20MG/ML) INFIL ONE (12:24)
[2020-10-22] MEDS ORDERED: BACITRACIN OINT 15 GM TUBE ONE (12:30)
--- NOTE | 2020-10-22 12:36 | Post Operative Brief Note ---
Immediate Post Op Note v1 Date of Surgery October 22, 2020 Pre & Post Diagnosis Operation Date: 10/22/20 11:30 Pre-Op Diagnosis: Left medial thigh abscess Post-Op Diagnosis: Left medial thigh abscess I identified the patient and participated in the time-out.: Yes Procedure Operation Date: 10/22/20 11:30 Actual Procedures p Incision and Drainage Left Thigh Abscess(Left) - Ana María Montaño MD Surgeon Ana María Montaño MD [place] Operator surgical orderly Estimated Blood Loss 5 Findings Consistent with Post-Op Diagnosis left medial thigh abscess, wound culture Fluids 300ml Drains Other (packing the wound) Anesthesia Type Local Complications none Disposition Accompanied Patient To Recovery: Yes
[2020-10-22] MEDS ORDERED: HYDROmorphone INJ 1 MG/ML SYRINGE IV PRN (12:44)
[2020-10-22] MEDS ORDERED: oxyCODONE/ACETAMINOPHEN 5mg/325mg TAB PO PRN (12:44)
--- NOTE | 2020-10-22 13:08 | Operative Report (OR) ---
DATE OF SURGERY: 10/22/2020 PREOPERATIVE DIAGNOSIS: Left medial thigh abscess. POSTOPERATIVE DIAGNOSIS: Left medial thigh abscess. OPERATION: Incision and drainage of left medial thigh abscess. SURGEON: Ana María Montaño MD. ANESTHESIA: Conscious sedation plus local. ESTIMATED BLOOD LOSS: About 5 mL. FINDINGS: Left medial thigh abscess. COMPLICATIONS: None. Wound cultures sent. INDICATIONS FOR THE PROCEDURE: This is a 60-year-old female who had coronary bypass x5 at [facility] about 3 weeks ago and the patient comes to the ED with left-sided medial thigh infection , redness, tenderness and patient also had a temperature. The patient had ultrasound diagnosis of le ft-sided medial thigh infection with fluid collection. After review of the patient's history, physic al exam, and lab results and ultrasound finding with the patient, I recommend to do the incision and drainage of left medial thigh abscess. I did talk to the patient about the benefit, risk, alternate procedure. I indicated the risks may include, but not limited to, such as bleeding, infection, recur rence, sepsis, and injury to other organs. The patient understands. She signed informed consent and I answered all questions. DESCRIPTION OF PROCEDURE: After we identified the patient and verified the procedure, we brought th e patient to the OR, put the patient in the supine position on the OR table. The patient received SC D on the right side of the leg and also the patient received 1 gram of vancomycin IV for prophylactic antibiotic. The patient received conscious sedation by the anesthesiology and left side of the medi al thigh was prepped and draped in routine sterile fashion. After timeout, I injected local anesthes ia by using 1% lidocaine mixed with 0.5% Marcaine on the left side medial thigh, then I made about 1. 5 cm incision and deepened to subcutaneous layer. There was some pus with some fluid coming out, we did send a wound culture. Once we completely removed all the fluid, the patient had a large cavity b elow the subcutaneous layer. Once we cleaned out the cavity, we packed it with half-inch Kerlix in t he wound. Hemostasis was obtained. Then, we put the dressing on. The patient tolerated the procedu re well. All instrument, needle and sponge counts were correct x2 at the end of the case. The patie nt was transferred to recovery room in stable condition. After the procedure, I did talk to the vesna ent about the OR finding and the procedure we did, patient understands. Job ID: [id number]
--- NOTE | 2020-10-22 13:08 | Anesthesiology Progress Note ---
Date of Service October 22, 2020 Anesthesia Post Procedure Vital Signs Vital Signs: Temp Pulse Pulse Pulse Resp BP BP 10/22/20 12:50 69 15 124/83 10/22/20 12:42 36.2 C L 71 16 135/89 10/22/20 12:08 36.7 C 68 18 159/87 H 10/22/20 03:00 37.7 C H 77 80 22 152/88 H 10/22/20 01:00 88 16 157/92 H 10/21/20 23:04 79 16 153/104 H 10/21/20 21:19 81 20 126/91 10/21/20 18:38 37.2 C 104 H 18 120/75 Pulse Ox 10/22/20 12:50 99 10/22/20 12:42 100 10/22/20 12:08 95 10/22/20 03:00 95 10/22/20 01:00 96 10/21/20 23:04 96 10/21/20 21:19 97 10/21/20 18:38 96 Transfer of Care Handoff Completed per policy Notes Mental Status: alert / awake / arousable and participated in evaluation Patient Amnestic to Procedure: Yes Nausea / Vomiting: adequately controlled Pain: adequately controlled Airway Patency, RR, SpO2: stable & adequate BP & HR: stable & adequate Hydration State: stable & adequate Anesthetic Complications: no major complications apparent and Pt Satisfied with anesthetic care
[2020-10-22] MEDS: CLINDAMYCIN 600 MG in DEXTROSE 5% 50 ML IV SCH ×2 (17:57→22:04)
[2020-10-22] MEDS: LINEZOLID 600 MG/300 ML D5W IV SCH (18:37)
[2020-10-23] MEDS: CLINDAMYCIN 600 MG in DEXTROSE 5% 50 ML IV SCH (05:47)
[2020-10-23 06:16] LABS: Basophils # (auto) 0.02 K/uL (0-0.2); Basophils % (auto) 0.3 %; Eosinophils # (auto) 0.16 K/uL (0-0.5); Eosinophils % (auto) 2.3 %; Hematocrit (blood only) 35.2 % (37-47); Immature Granulocytes # (auto) 0.01 K/uL (0.00-0.02); Immature Granulocytes % (auto) 0.1 %; Lymphocytes # (auto) 2.36 K/uL (1.2-3.4); Lymphocytes % (auto) 34.2 %; Mean Corpuscular Hemoglobin 29.2 pg (25-34); Mean Corpuscular Hgb Conc 31.3 g/dL (32-36); Mean Corpuscular Volume 93.4 fL (80-100); Mean Platelet Volume 8.8 fL (7.4-10.4); Monocytes # (auto) 0.63 K/uL (0.11-0.59); Monocytes % (auto) 9.1 %; Neutrophils # (auto) 3.72 K/uL (1.4-6.5); Platelet Count 367 K/uL (130-400); RDW Standard Deviation 51.1 fL (36.4-46.3); Red Blood Count 3.77 M/uL (4.2-5.4)
[2020-10-23] MEDS: LINEZOLID 600 MG/300 ML D5W IV SCH (06:20)
[2020-10-23] MEDS: LINEZOLID 600 MG/300 ML BAG IV SCH ×2 (06:24→17:59)
[2020-10-23 06:46] LABS: Albumin Level 2.8 gm/dl (3.4-5.0); BUN Creatinine Ratio 13.9 (10-20); Bilirubin Direct 0.4 mg/dl (0-0.2); Calcium 8.9 mg/dl (8.5-10.1); Creatinine Clr Calc Pharmacy 95.8 ml/min; Est GFR (African American) 101.8 ml/min; Est GFR (Non-African American) 87.9 ml/min; Potassium 3.4 mmol/L (3.5-5.1)
[2020-10-23 06:49] LABS: Bilirubin,Total 2.2 mg/dl (0.2-1); Total Protein 6.7 gm/dl (6.4-8.2)
--- NOTE | 2020-10-23 07:26 | Hospitalist Progress Note ---
Date of Service October 23, 2020 Assessment & Plan (1) Wound infection after surgery: Plan: 60-year-old female with history of coronary artery disease status post CABG x5 vessel performed on 09/29/2020 presenting with left thigh abscess at the site of vein graft harvest from CABG, s/p I&D (10/22). Stable. Surgical site infection Patient with infection of RLE at site where vein graft was harvested for CABG patient underwent on 09/29 in [facility] Continue linezolid, zosyn Cultures pending - growing gram neg bacilli I&D performed by surgery on 10/22, procedure tolerated well CAD s/p CABG x5 Denies symptoms of ACS; troponin negative EKG with diffuse T-wave inversions, suspect post-catheterization changes Continue ASA, atorvastatin, metoprolol Hypertension Well-controlled at this time Continue amlodipine, metoprolol Elevated alkaline phosphatase level Patient with abnormal liver studies and mixed pattern, alkaline phosphatase = 474 Suspected to be secondary to recent sternotomy RUQ ultrasound unremarkable Follow daily CMP FEN: heart healthy diet Code status: DNR/DNI DVT ppx: SCDs Consults: general surgery Dispo: med/surg Admission and Anticipated Discharge Date Admission Date: October 22, 2020 Supervising Physician Co-Signing Physician Notes Resident Physician Supervision Note: I independently interviewed and examined the patient and verified the aranda history and physical, reviewed labs and image studies and agree with resident Dr. Griffith findings and care plan. Subjective Patient seen and evaluated at bedside this morning. No acute events overnight. Patient feels well this morning and has no complaints. Minimal pain at site of yesterday's I&D. Patient denies CP, SOB, abdominal pain, nausea, vomiting, lightheadedness, dizziness, and diarrhea. Review of Systems Review of Systems: See HPI Physical Exam Physical Exam: Constitutional: well-appearing, no acute distress CV: regular rhythm, no murmur appreciated, extremities well-perfused, no LE edema Resp: CTABL, no wheezes/rales/rhonchi appreciated, no increased work of breathing Skin: left thigh wound dressed with gauze, dressing clean/dry/intact Neuro: AOx4, no focal neurological deficits appreciated Results & Data Results & Data ([facility]) Vital Signs (Past 12 Hours) Vital Signs Temp Pulse Pulse Resp BP Pulse Ox 10/23/20 05:16 36.7 C 70 20 124/72 93 10/23/20 02:00 80 10/22/20 23:44 36.9 C 79 18 149/82 H 93 10/22/20 20:35 36.7 C 77 18 115/79 97 Resident Activity Tracking Resident Involvement: Resident Care Provided Care Provided: Adult Hospital Medicine
[2020-10-23] MEDS: METOPROLOL TARTRATE 50 MG TAB PO SCH ×2 (09:08→21:20)
[2020-10-23] MEDS: amLODIPine BESYLATE 5 MG TAB PO SCH (09:08)
[2020-10-23] MEDS: FUROSEMIDE 40 MG TAB PO SCH (09:08)
[2020-10-23] MEDS: POTASSIUM CHLORIDE CRTAB 20 MEQ TABCR PO SCH (09:08)
[2020-10-23] MEDS: ASPIRIN 81 MG ECTAB PO SCH (09:08)
[2020-10-23] MEDS: ATORVASTATIN 40 MG TAB PO SCH (09:08)
--- NOTE | 2020-10-23 10:41 | Medical Student Progress Note ---
Date of Service October 23, 2020 Assessment & Plan (1) Wound infection after surgery: Plan: 60 y/o female with history of CAD s/p CABG x5 vessel preformed - presents w/ LLE surgical site infection -Pt w/ infection of RLE at site where vein graft was harvested for CABG -I&D performed by surgery on 10/22, procedure tolerated well -Preliminary culture results show gram negative bacilli -Continue linezolid and start zosyn -Pt to follow up with wound clinic (2) Elevated alkaline phosphatase level: Plan: -Pt w/ elevated Alkaline phosphatase -Liver u/s unremarkable -Suspected elevated alkaline phosphatase due to recent sternotomy -No tx indicated (3) Hypertension: Plan: -HTN, CAD -Continue home meds Admission and Anticipated Discharge Date Admission Date: October 22, 2020 Subjective 60 y/o female s/p CABG x5 09/29/2020 presenting with a surgical site infection. Today she says she is not in any pain and feels fine. Review of Systems 2 Review of Systems: All systems reviewed & are unremarkable except as noted in Subjective Physical Exam Constitutional: Well developed female in no apparent distress sitting up comfortably in bed Respiratory: Chest clear to auscultation Cardiovascular: Regular rate and rhythm, no murmurs, rubs, or gallops Results & Data ([facility]) Vital Signs (Past 12 Hours) Vital Signs Temp Pulse Pulse Resp BP Pulse Ox 10/23/20 08:21 37.0 C 80 18 158/96 H 95 10/23/20 05:16 36.7 C 70 20 124/72 93 10/23/20 02:00 80 10/22/20 23:44 36.9 C 79 18 149/82 H 93
[2020-10-23] MEDS ORDERED: PIPERACILL/TAZOBAC CONSULT ACTIVE PRN (10:59)
[2020-10-23] MEDS ORDERED: PIPERACILLIN/TAZOBACTAM 4.5 GM in DEXTROSE 5% 100 ML IV ONE (11:30)
--- NOTE | 2020-10-23 11:37 | Surgery Progress Note ---
Date of Service October 23, 2020 Assessment & Plan (1) Wound infection after surgery: Plan: POD # 1 s/p incision and drainage -avss - leukocytosis resolved - culture showing gram negative bacilli - blood cultures NTD Plan: Follow-up with wound care clinic for wound care and packing changes antibiotics per wound culture and sensitivity continue medical management our services signing off Dr. Montaño has seen patient agrees with above. Admission and Anticipated Discharge Date Admission Date: October 22, 2020 Subjective feeling better the wound had alot of drainage so the dressing was reapplied by nurse no fevers or chills Physical Exam Constitutional: WD/WN, vitals as above + obese Respiratory: normal respiratory effort; no respiratory distress, no labored breathing and no retractions Musculoskeletal: Left upper thigh with gauze wrapped around the leg , clean/dry/intact Skin: no rashes, warm and dry Psychiatric: A+Ox3, euthymic affect Results & Data ([facility]) Vital Signs (Past 12 Hours) Vital Signs Temp Pulse Pulse Resp BP Pulse Ox 10/23/20 11:13 36.3 C L 71 18 109/76 95 10/23/20 08:21 37.0 C 80 18 158/96 H 95 10/23/20 05:16 36.7 C 70 20 124/72 93 10/23/20 02:00 80 10/22/20 23:44 36.9 C 79 18 149/82 H 93 Laboratory Results 10/23/20 10/23/20 Range/Units 05:52 05:52 WBC 6.90 (4.8-10.8) K/uL RBC 3.77 L (4.2-5.4) M/uL Hgb 11.0 L (12.0-16.0) g/dL Hct 35.2 L (37-47) % MCV 93.4 (80-100) fL MCH 29.2 (25-34) pg MCHC 31.3 L (32-36) g/dL RDW Std Deviation 51.1 H (36.4-46.3) fL RDW Coeff of Kathryn 15.0 H (11.5-14.5) % Plt Count 367 (130-400) K/uL MPV 8.8 (7.4-10.4) fL Immature Gran % (Auto) 0.1 % Neut % (Auto) 54.0 % Lymph % (Auto) 34.2 % [place] % (Auto) 9.1 % Eos % (Auto) 2.3 % Baso % (Auto) 0.3 % Neut # (Auto) 3.72 (1.4-6.5) K/uL Lymph # (Auto) 2.36 (1.2-3.4) K/uL [place] # (Auto) 0.63 H (0.11-0.59) K/uL Eos # (Auto) 0.16 (0-0.5) K/uL Baso # (Auto) 0.02 (0-0.2) K/uL Immature Gran # (Auto) 0.01 (0.00-0.02) K/uL Sodium 140 (136-145) mmol/L Potassium 3.4 L (3.5-5.1) mmol/L Chloride 107 (98-107) mmol/L Carbon Dioxide 26 (21-32) mmol/L Anion Gap 7.0 (3-11) BUN 10 (7-18) mg/dl Creatinine 0.75 (0.6-1.2) mg/dl Est Cr Clr Drug Dosing 95.8 ml/min Est GFR ( Amer) 101.8 ml/min Est GFR (Non-Af Amer) 87.9 ml/min BUN/Creatinine Ratio 13.9 (10-20) Glucose 81 (70-99) mg/dl Calcium 8.9 (8.5-10.1) mg/dl Total Bilirubin 2.2 H (0.2-1) mg/dl Direct Bilirubin 0.4 H (0-0.2) mg/dl AST 59 H (15-37) U/L ALT 91 H (12-78) U/L Alkaline Phosphatase 364 H (45-117) U/L Total Protein 6.7 (6.4-8.2) gm/dl Albumin 2.8 L (3.4-5.0) gm/dl Microbiology 10/22/20 12:31 Gram Stain - Final Leg,Left Aerobic and Anaerobic Culture - Preliminary Gram negative bacilli 10/21/20 20:50 Aerobic Blood Culture - Preliminary Blood No growth in Aerobic bottle after 24 hours. Anaerobic Blood Culture - Preliminary No growth in Anaerobic bottle after 24 hours. 10/21/20 20:50 Aerobic Blood Culture - Preliminary Blood No growth in Aerobic bottle after 24 hours. Anaerobic Blood Culture - Preliminary No growth in Anaerobic bottle after 24 hours.
[2020-10-23] MEDS: PIPERACILLIN/TAZOBACTAM 4.5 GM in DEXTROSE 5% 100 ML IV SCH (15:59)
--- NOTE | 2020-10-23 16:57 | Electrocardiogram Report ---
Test Reason : Blood Pressure : / mmHG Vent. Rate : 096 BPM Atrial Rate : 096 BPM P-R Int : 114 ms QRS Dur : 082 ms QT Int : 350 ms P-R-T Axes : 062 056 210 degrees QTc Int : 442 ms Normal sinus rhythm T wave abnormality, consider inferolateral ischemia Abnormal ECG No previous ECGs available Confirmed by Porter Molina ([id number]) on 10/23/2020 4:57:08 PM Referred By: REFERRED SELF Confirmed By:Porter Molina
[2020-10-24] MEDS: PIPERACILLIN/TAZOBACTAM 4.5 GM in DEXTROSE 5% 100 ML IV SCH ×2 (01:02→10:33)
--- NOTE | 2020-10-24 05:56 | Hospitalist Progress Note ---
Date of Service October 24, 2020 Assessment & Plan (1) Wound infection after surgery: Plan: 60-year-old female with history of coronary artery disease status post CABG x5 vessel performed on 09/29/2020 presenting with left thigh abscess at the site of vein graft harvest from CABG, s/p I&D (10/22). Stable. Surgical site infection Patient with infection of RLE at site where vein graft was harvested for CABG patient underwent on 09/29 in [facility] Continue linezolid, zosyn Cultures pending - growing gram neg bacilli I&D performed by surgery on 10/22, procedure tolerated well CAD s/p CABG x5 Denies symptoms of ACS; troponin negative EKG with diffuse T-wave inversions, suspect post-catheterization changes Continue ASA, atorvastatin, metoprolol Hypertension Well-controlled at this time Continue amlodipine, metoprolol Elevated alkaline phosphatase level Patient with abnormal liver studies and mixed pattern, alkaline phosphatase = 474 Suspected to be secondary to recent sternotomy RUQ demonstrating possible hepatic steatosis, otherwise unremarkable Follow daily CMP FEN: heart healthy diet Code status: DNR/DNI DVT ppx: SCDs Consults: general surgery Dispo: med/surg Admission and Anticipated Discharge Date Admission Date: October 22, 2020 Review of Systems Review of Systems: as per HPI Physical Exam Physical Exam: General: [ Age ] old _ who is alert, oriented, and appears in no acute distress. Body habitus: _. HEENT: NCAT. Eyes - Sclera are white, anicteric, and without injection. PERRL. EOMs display full ROM bilaterally. Mouth - MMM with no tonsillar edema or exudates. Nose - nasal turbinates are uninflamed and without discharge. Ears - External ears appears healthy b/l with no erythema or rashes; TMs displayed white reflex b/l and are non-bulging, uninflamed, and reveal no signs of fluid accumulation. Neck - supple and without LAD. Thyroid - no appreciable goiter or nodules. Cardiac: Normal rate and regular rhythm; S1 and S2 present with no murmurs, rubs, or gallops. Pulmonary: Good respiratory effort with symmetric expansion of the chest. No use of accessory muscles. Lungs were clear to auscultation bilaterally with no crackles or wheezes. Abdominal: Normoactive bowel sounds. Abdomen was soft, nondistended, and non- tender to palpation. No hepatomegaly or splenomegaly. Extremities: Upper and lower extremities are warm and well perfused. Radial and dorsalis pedis pulses were 2+ b/l. Capillary refill assessed in UE was < 3 sec. Psych: Well-developed, well-nourished, appropriately dressed for occasion. Behavior is cooperative and appropriate. Affect is WNL. Insight is appropriate. Results & Data Results & Data ([facility]) Vital Signs (Past 12 Hours) Vital Signs Temp Pulse Pulse Resp BP Pulse Ox 10/24/20 05:07 69 10/24/20 03:24 36.7 C 71 18 129/81 96 10/23/20 23:35 36.5 C 72 18 124/74 95 10/23/20 19:54 37 C 78 16 151/87 H 96 Resident Activity Tracking Resident Involvement: Resident Care Provided Care Provided: Adult Hospital Medicine
[2020-10-24 06:00] LABS: Basophils # (auto) 0.02 K/uL (0-0.2); Basophils % (auto) 0.3 %; Eosinophils # (auto) 0.23 K/uL (0-0.5); Eosinophils % (auto) 3.3 %; Hematocrit (blood only) 34.8 % (37-47); Hemoglobin 11.1 g/dL (12.0-16.0); Immature Granulocytes # (auto) 0.01 K/uL (0.00-0.02); Immature Granulocytes % (auto) 0.1 %; Lymphocytes % (auto) 37.4 %; Mean Corpuscular Hemoglobin 29.4 pg (25-34); Mean Corpuscular Hgb Conc 31.9 g/dL (32-36); Mean Corpuscular Volume 92.1 fL (80-100); Mean Platelet Volume 9.1 fL (7.4-10.4); Monocytes # (auto) 0.61 K/uL (0.11-0.59); Monocytes % (auto) 8.8 %; Neutrophils # (auto) 3.48 K/uL (1.4-6.5); Neutrophils % (auto) 50.1 %; Platelet Count 349 K/uL (130-400); RDW Coefficient of Variation 14.8 % (11.5-14.5); Red Blood Count 3.78 M/uL (4.2-5.4); White Blood Count 6.95 K/uL (4.8-10.8)
[2020-10-24 06:31] LABS: BUN Creatinine Ratio 15.2 (10-20); Creatinine Clr Calc Pharmacy 79.9 ml/min; Est GFR (African American) 81.7 ml/min; Est GFR (Non-African American) 70.5 ml/min; Potassium 3.4 mmol/L (3.5-5.1)
[2020-10-24] MEDS: LINEZOLID 600 MG/300 ML BAG IV SCH (06:36)
[2020-10-24] MEDS: ASPIRIN 81 MG ECTAB PO SCH (10:36)
[2020-10-24] MEDS: ATORVASTATIN 40 MG TAB PO SCH (10:36)
[2020-10-24] MEDS: amLODIPine BESYLATE 5 MG TAB PO SCH (10:36)
[2020-10-24] MEDS: FUROSEMIDE 40 MG TAB PO SCH (10:37)
[2020-10-24] MEDS: METOPROLOL TARTRATE 50 MG TAB PO SCH (10:37)
[2020-10-24] MEDS: POTASSIUM CHLORIDE CRTAB 20 MEQ TABCR PO SCH (10:40)
--- NOTE | 2020-10-24 12:19 | Discharge Summary ---
Date of Service October 24, 2020 Admission HPI Per Admitting Provider Rosibel Myles is a 60-year-old female with history of hypertension, coronary artery disease, status post CABG x5 vessel performed 09/29/2020 at [facility] in [place], [place] (Dr. Rivers was surgeon). Patient recently moved in with her daughter who lives locally. She presents today with fever as well as swelling/pain of left thigh at site of vein harvest. T-max of one 1.5 prior to arrival. Patient took Tylenol No additional complaints. Specifically denies chest pain, palpitations, cough, shortness of breath. Denies abdominal pain, nausea, vomiting, diarrhea, constipation. She has been taking her medications as instructed without difficulty. ER course: Unasyn, daptomycin Admission Exam Per Admitting Provider General: patient resting comfortably, NAD, non-toxic in appearance, AA&O x 4 Skin: warm, dry, intact, no rashes or lesions HEENT: NC/AT, PERRL, EOMI, anicteric sclera, conjunctiva without injection, external ear normal to inspection and nontender, nares patent, moist mucus membranes, dentition intact, no oropharyngeal lesions, neck supple, trachea midline, no LAD, no thyromegaly, no JVD Heart: +S1/S2, regular, no m/r/g, well-healing sternotomy incision with no bleeding/erythema/dehiscence Lungs: equal air entry bilaterally, no rales/rhonchi/wheezes Abd: +BS, soft, NT/ND, no masses/organomegaly/ascites, no right upper quadrant pain, negative Gardner sign Ext: warm, 2+ pulses in UE/LE bilaterally, no clubbing/cyanosis, tenderness to palpation left medial thigh to posterior popliteal fossa with warmth and redness Neuro: nonfocal, patient AA&O x 4, speech intact, no facial droop, moving all extremities on command with equal strength 5/5 Principal Diagnosis left thigh abscess Discharge Exam General: Well-appearing 60-year-old female who is lying back in her hospital bed, relaxed, upon my arrival. She does not appear sickly or toxic. No acute distress. HEENT: NCAT. Eyes - Sclera are white, anicteric, and without injection. PERRL. MMM. Cardiac: Normal rate and regular rhythm; S1 and S2 present with no murmurs, rubs, or gallops. Pulmonary: Good respiratory effort with symmetric expansion of the chest. No use of accessory muscles. Lungs were clear to auscultation bilaterally with no crac kles or wheezes. Abdominal: Normoactive bowel sounds. Abdomen was soft, nondistended, and non- tender to palpation. Dermatologic: Examination of the proximal left thigh does reveal an open, packed wound that is approximately 3 cm long. There is minimal surrounding erythema. There is no obvious discharge coming from the site. The area is nontender to palpation and does not demonstrate significant induration. Discharge Data Allergies Allergy/AdvReac Type Severity Reaction Status Date / Time No Known Allergies Allergy Unverified 10/22/20 01:07 Consultations 10/22/20 00:24 ED Decision to Admit Stat 10/22/20 03:34 Consult General Surgery Routine Procedures Performed Operation Date: 10/22/20 11:30 Actual Procedures p Incision and Drainage Left Medial Thigh Abscess(Left) - Ana María Montaño MD Ordered Studies US liver (10/22) CLINICAL HISTORY: elevated alkaline phosphatase and bilirubin COMPARISON STUDY: No previous studies for comparison. FINDINGS: This exam is mildly compromised by suboptimal penetration. Liver is mildly echogenic and heterogeneous. The liver is not overtly cirrhotic. No h epatic lesions are identified. There is no biliary ductal dilatation. The common bile duct measures 4 mm in caliber. No gallstones are noted. There is sludge within the gallbladder. There is no sonographic Gardner sign. There is no gallbladder wall thickening. Pancreatic body is unremarkable. Tail is obscured by overlying bowel gas. There is no right hydronephrosis. IMPRESSION: 1. No gallstones or biliary ductal dilatation. Small amount of sludge within the gallbladder. No evidence for acute cholecystitis. 2. Possible hepatic steatosis. Liver not overtly cirrhotic. ---- LEFT LOWER EXTREMITY VENOUS DOPPLER (10/21) CLINICAL HISTORY: surgery, swelling COMPARISON STUDY: No previous studies for comparison. TECHNIQUE: Sonography of the deep venous system of the left lower extremity was performed. Compression and augmentation were evaluated. FINDINGS: The left common femoral, superficial femoral and popliteal veins were compressible. Augmentation was normal. Flow was shown within the deep calf vessels. IMPRESSION: No evidence of deep venous thrombus within the left lower extremity. ---- US extremity non-vascular ltd (10/21) CLINICAL HISTORY: left inner thigh redness, swelling, poss abscess COMPARISON STUDY: None. FINDINGS: Real-time sonographic imaging of the left distal thigh/calf was performed with self pay representative images submitted. There is a linear slightly complex fluid collection within the deep subcutaneous soft tissues which measures 33 x 7 x 3 cm. This favors a hematoma or degloving injury. An abscess is considered less likely but could also have a similar appearance. IMPRESSION: A 33 x 7 x 3 cm complex fluid collection within the deep subcutaneous soft tissues of the left lower extremity. This favors a hematoma or degloving injury. An abscess is considered less likely but not entirely excluded. Hospital Course (1) Wound infection after surgery: 60-year-old female with history of coronary artery disease status post CABG x5 vessel performed on 09/29/2020 presenting with left thigh abscess at the site of vein graft harvest from CABG, s/p I&D (10/22). Surgical site infection with [place]-sensitive Pseudomonas Patient with infection of RLE at site where vein graft was harvested for CABG - 09/29 in [facility] demonstrating [place]-sensitive Pseudomonas Initially on Zosyn, Linezolid for broad-spectrum coverage --> transitioned to ciprofloxacin 500mg PO b.i.d. x 5 days upon discharge I&D performed by surgery on 10/22, procedure tolerated well Wound packing changed at the time of discharge. Will require f/u with wound care clinic upon discharge. Phone number provided to patient within discharge instructions. CAD s/p CABG x5 Denied symptoms of ACS; troponin negative EKG with diffuse T-wave inversions, suspect post-catheterization changes Continued ASA, atorvastatin, metoprolol Hypertension Well-controlled throughout stay Continued amlodipine, metoprolol Elevated alkaline phosphatase level Patient with abnormal liver studies and mixed pattern, alkaline phosphatase = 474 Suspected to be secondary to recent sternotomy RUQ demonstrating possible hepatic steatosis, otherwise unremarkable Recommend outpatient CMP after 1 week of discharge Code status: DNR/DNI Total Time Total Time Spent Total Time Spent (In Minutes): 30 minutes Discharge Plan Discharge Items Patient Disposition: Home - Home Health Services Reason For Visit: CHILLS, LLE PAIN Discharge Diagnosis: Left medial thigh abscess Condition on Discharge: Fair Activity: Resume your previous activity Non-emergency contact: Primary Care Provider Call non-emergency contact if: your symptoms worsen Follow-up/Referrals: Elvis Stephens MD [Primary Care Provider] - (PLEASE CALL YOUR PRIMARY CARE PROVIDER TO SET UP A FOLLOW-UP DISCHARGE APPOINTMENT IN 7-10 DAYS.) Diet: Heart Healthy Addtl Attending Provider Instructions: You were seen in [facility] for evaluation of left thigh abscess. During your visit here, you underwent extensive debridement and investigation of the cause of this abscess. The organism that caused your abscess is called Pseudomonas. You were treated with antibiotics to help with this infection. Thankfully, this strain of Pseudomonas demonstrated good sensitivity to many of our oral antibiotics. As such, upon discharge, you will be transitioned to ciprofloxacin 500 mg, to be taken twice daily, for the next 5 days. It is going to be extremely important to follow-up with wound care clinic upon discharge. Please call [phone] to schedule an appointment first thing Monday. Further, you have been set up with home health that can help manage this wound in the interim. Otherwise, please continue taking all of your medications as prescribed. Please follow-up with your PCP within the next week to review this visit. If you experience any worsening fever, chills, pain around the incision site, redness, pain throughout your leg otherwise, chest pain, palpitations, shortness of breath, or other worrisome symptoms, please report back to the hospital for immediate evaluation. Is been a pleasure for caring you while you were here. We wish you all the best in your recovery. Pending Studies at Discharge: No Stand-Alone Forms: My [facility], Smoking Cessation Medications and DC Order Prescriptions: New ciprofloxacin HCl 500 mg Tablet 500 mg PO BID 5 Days Qty: 10 RF: 0 Continued furosemide 40 mg tablet 40 mg PO DAILY RF: 0 atorvastatin 80 mg tablet 80 mg PO DAILY RF: 0 amlodipine 5 mg tablet 5 mg PO DAILY RF: 0 potassium chloride [Klor-Con M20] 20 mEq tablet,ER particles/crystals 20 meq PO DAILY RF: 0 metoprolol tartrate 50 mg tablet 50 mg PO BID RF: 0 aspirin 81 mg PO DAILY RF: 0 Discharge Orders: Discharge Order (Routine); Ordered 10/24/20 Ordered By: Devan White Admission Data Admit Date/Time: 10/22/20 01:11 Attending Provider: Bhumika Rodriguez Admit Provider: Tracie Lei Primary Care Provider: Elvis Stephens Other Providers: [facility] ; Tracie Lie ; Kashmir Sawant Supervising Physician Co-Signing Physician Notes Resident Physician Supervision Note: I independently interviewed and examined the patient and verified the aranda history and physical, reviewed labs and image studies and agree with resident Dr. White findings and care plan. Resident Activity Tracking Resident Involvement: Resident Care Provided Care Provided: [facility] Attestation I certify that this patient is under my care and that I, or a physicians media center assistant working with me, had a face to-face encounter that meets the home health [id number] encounter requirements with this patient. The encounter with the patient was in whole, or in part, for the following medical condition, which is the primary reason for home health care (list medical condition): s/p incision and drainage of left thigh abscess I certify that, based on my findings, the following services are medically necessary home health services: Patient is recovering from complex course of illness including recent CABG x 5 as well as interval development of left thigh abscess that has created significant functional limitation. Patient will require aid with daily functions (e.g., skilled assessments and intervention of medical issue, including ambulation) as well as dressing changes/packing as directed by wound care clinic. My clinical findings support the need for the above services because: PT Assessment for Endurance / Balance / Strength PT Eval for Safety and Mobility PT Eval for Safety, Gait Training, Assistive Devices PT Gait and Balance Training, Strengthening and Safety Skilled Nsg Assessment Skilled Nsg Assessment Surgical Incision / Wound Further, I certify that my clinical findings support that this patient is homebound (i.e. absences from home require considerable and taxing effort and are for medical reasons or catholic services or infrequently or of short duration when for other reasons) because: Transportation Assistance/Unable to Leave Home Unassisted Certification for Home Health Services: Based on the above findings, I certify that this patient is confined to the home and needs intermittent prison care, physical therapy and/or speech therapy or continues to need occupational therapy. The patient is under my care, and I have initiated the establishment of the plan of care. This patient will be followed by a physician who will periodically review the plan of care.
[2020-10-24] MEDS ORDERED: CIPROFLOXACIN 500 MG TAB PO SCH (21:00)
== END 2020-10-24 17:15 | disposition home health service (06) | DRG 857 ==
LOC: ED 18:31 → EDINP 10-22 01:11 → SUATTDRO 10-22 01:11 → 2N 10-22 02:48 → PACUINP 10-22 14:30 → 2N 10-22 17:00